=== PATIENT | female | born 2000 | race Caucasian/White ===

== ENCOUNTER 2024-11-29 15:38 | Emergency (ER) | payer BC, SELFPAY ==
--- NOTE | ~2024-11-29 | XR_ITS ---
EXAMINATION: XR KNEE, RIGHT CLINICAL INFORMATION: fall, pain COMPARISON: None available. TECHNIQUE: Four views of the right knee. FINDINGS: No definitive fracture or joint effusion. Alignment is anatomic. Joint spaces are maintained. No abnormal soft tissue calcification. XR/XR knee RT 4V IMPRESSION: No acute findings right knee. No joint effusion. Electronically signed by: Beau Mata MD 11/29/2024 04:31 PM EST
--- NOTE | ~2024-11-29 | XR_ITS ---
EXAMINATION: XR ANKLE, RIGHT CLINICAL INFORMATION: fall, pain COMPARISON: None available. TECHNIQUE: AP, lateral, and mortise views of the right ankle. FINDINGS: No fracture, dislocation, or suspicious bone lesion. The mortise is intact. The talar dome is normal. No syndesmotic widening. There is a small plantar calcaneal spur. The subtalar joints appear normal. No evidence of ankle joint effusion. Normal-appearing soft tissues. XR/XR ankle RT min 3V IMPRESSION: No acute findings right ankle. Electronically signed by: Beau Mata MD 11/29/2024 04:33 PM EST
[2024-11-29 15:46] VITALS: BP 169/134; PULSE 77; O2SAT 99
[2024-11-29 16:29] VITALS: BP 147/101; PULSE 75; RESP 16; TEMP 36.9; O2SAT 98; BMI 58.6
[2024-11-29 19:11] VITALS: BP 140/72; PULSE 83; RESP 16; O2SAT 97
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
[2024-11-29] MEDS: Ibuprofen 600 MG TABLET PO (19:18)
--- OUTSIDE RECORDS SUMMARY | 2024-11-29 19:34 | XMS_ITS | Encounter Summary ---
Author Organization [facility] Address [address] [place] [address] Care Team Providers Care Assistant Drafter Name Role Phone Kevin Silva MD Primary Care Provider Kevin Silva MD Primary Care Provider [phone] Radha Minaya Primary Care Provider [phone] Mala Murguia MD Primary Care Provider Encounter Details Date Type Department Care Team (Late st Contact Info) Description 05/14/2011 Orders Only [facility] [address] [place] [id number] Kevin Silva MD [address] [place] [address] Social History Tobacco Use Types Packs/Day Years Used Date Smoking Tobacco: Never Assessed Comments Unknown Sex and Gender Information Value Date Recorded Sex Assigned at Not on file Legal Sex Female 12:23 PM EDT Gender Identity Not on file Sexual Orientation Not on file documented as of this encounter Plan of Treatment Not on file documented as of this encounter Procedures * Due to [place] state law, this organization might not be sharing negative HIV tests. Procedure Name Priority Date/Time Associated Diagnosis Comments URINALYSIS, DIP ONLY ( SITE STAT ONLY) STAT (All results called to provider) 05/14/2011 12:59 PM EDT Dysuria CULTURE, URINE Routine 05/14/2011 Dysuria URINALYSIS, COMPLETE (DIP & MICRO) Routine 05/14/2011 Dysuria documented in this encounter Results * Due to [place] state law, this organization might not be sharing negative HIV tests. * URINALYSIS, DIP ONLY ( SITE STAT ONLY) (05/14/2011 12:59 PM EDT) COLOR (URINE) yellow [facility] (CLIA# [id number]) APPEARANCE (URINE) clear [facility] (CLIA# [id number]) SPECIFIC GRAVITY 1.025 1.001 - 1.035 [facility] (CLIA# [id number]) PH (URINE) 6.0 5.0 - 8.0 [facility] (CLIA# [id number]) PROTEIN (URINE) neg Neg - Neg [facility] (CLIA# [id number]) GLUCOSE (URINE) neg Neg - Neg [facility] (CLIA# [id number]) Ketones (Urine) neg Neg - Neg [facility] (CLIA# [id number]) BILIRUBIN (URINE) neg Neg - Neg [facility] (CLIA# [id number]) BLOOD (URINE) neg Neg - Neg [facility] (CLIA# [id number]) WBC (URINE) neg Neg - Neg [facility] (CLIA# [id number]) NITRITE (URINE) neg Neg - Neg [facility] (CLIA# [id number]) Urine specimen (specimen) 05/14/2011 12:59 PM EDT Narrative [facility] (CLIA# [id number]) - 05/14/2011 1:00 PM EDT Micro and culture already ordered per provider. us Kevin Silva MD LAB SAME DAY RESULT Final Resu lt [facility] (CLIA# [id number]) [address] [place] [address] * (ABNORMAL) URINALYSIS, COMPLETE (DIP & MICRO) (05/14/2011) COLOR (URINE) YELLOW YELLOW [facility] APPEARANCE (URINE) TURBID(A) CLEAR [facility] SPECIFIC GRAVITY 1.024 1.001 - 1.035 [facility] PH (URINE) 5.5 5.0 - 8.0 [facility] PROTEIN (URINE) NEG NEG [facility] GLUCOSE (URINE) NEG NEG [facility] Ketones (Urine) NEG NEG [facility] BILIRUBIN (URINE) NEG NEG [facility] BLOOD (URINE) NEG NEG [facility] WBC (URINE) NEG NEG [facility] NITRITE (URINE) NEG NEG [facility] WBC (URINE) 0 0-4/HPF [facility] RBC (Urine Sed) 0 0-3/HPF [facility] EPITHELIAL CELLS.SQUAMOUS (URINE SED) 0-5 0-5/HPF [facility] EPITHELIAL CELLS.TRANSITI ONAL (URINE SED) 0 0-5/HPF [facility] EPITHELIAL CELLS.RENAL (URINE SED) 0 0-3/HPF [facility] BACTERIA (URINE) MODERATE(A) NONE SEEN [facility] URINE URIC ACID CRYSTALS MODERATE NONE-FEW/H PF [facility] URINE CRYSTALS MANY AMORPHOUS [facility] 05/14/2011 05/14/2011 9:4 5 PM EDT Narrative [facility] - 05/15/2011 7:08 AM EDT Report Comments: URINE CULTURE PERFORMED FROM UNPRESERVED URINE. RESULTS MAY BE AFFECTED. PLEASE SEND URINE IN MARTÍNEZ TOP URINE CULTURE TUBE FOR OPTIMAL RESULTS. us Kevin Silva MD LAB SAME DAY RESULT Final Resu lt Performing Organization Address City/State/[facility] Co de Phone Number [facility] [address] [place] [address] * CULTURE, URINE (05/14/2011) URINE CULTURE CLEAN VOID SEE TEXT [facility] Comment: SOURCE: URINE MULTIPLE ORGANISMS, EACH <10,000 CFU/ML. MAY REPRESENT NORMAL GARO CONTAMINATION FROM EXTERNAL GENITALIA. NO FURTHER TESTING. 05/14/2011 05/14/2011 9:4 5 PM EDT Narrative [facility] - 05/16/2011 8:08 AM EDT Report Comments: URINE CULTURE PERFORMED FROM UNPRESERVED URINE. RESULTS MAY BE AFFECTED. PLEASE SEND URINE IN MARTÍNEZ TOP URINE CULTURE TUBE FOR OPTIMAL RESULTS. Kevin Silva MD LABORATORY Final Result [facility] [address] [place] [address] documented in this encounter Visit Diagnoses Diagnosis Dysuria documented in this encounter Additional Health Concerns Infection Onset Date Last Indicated Resolved Time COVID-19 Rule-Out 05/20/2021 05/20/2021 05/20/2021 4:22 PM EDT documented as of this encounter Care Teams Assistant Drafter Relationship Specialty Start Date End Date Kevin Silva MD [address] [place] [address] PCP - General 01/19/06 11/06/13 Kevin Silva MD [address] [place] [address] PCP - General Pediatrics 11/07/13 05/13/16 Radha Minaya [address] [address] PCP - General Pediatrics 05/14/16 10/11/21 Mala Murguia MD [address] [place] [address] PCP - General Internal Medicine 10/12/21 documented as of this encounter
--- OUTSIDE RECORDS SUMMARY | 2024-11-29 19:34 | XMS_ITS | Encounter Summary ---
Author Organization [facility] Address [address] [place] [address] Care Team Providers Care Burglary Investigator Name Role Phone Mala Murguia MD Primary Care Provider [phone] Encounter Details Date Type Department Care Team ([facility] st Contact Info) Description 05/21/2022 Orders Only [facility] Orthopedic Surgery [address] [facility] [address] [place] [address] Rafael Jimenez PA [address] [facility] [address] [place] [address] Social History Tobacco Use Types Packs/Day Years Used Date Smoking Tobacco: Never Cigarettes Smokeless Tobacco: Never Alcohol Use Standard Drinks/Week Comments Not Asked 0 (1 standard drink = 0.6 oz pur e alcohol) Comments No Sex and Gender Information Value Date Recorded Sex Assigned at Not on file Legal Sex Female 12:23 PM EDT Gender Identity Not on file Sexual Orientation Not on file documented as of this encounter Plan of Treatment Not on file documented as of this encounter Results * Due to [place] state law, this organization might not be sharing negative HIV tests. * XR KNEE ORTHO - RT (DX: KNEE PAIN *NO INJURY* M25.561/ 719.46)(AGE>=35, CAN WEIGHT-BEAR) FC (05/22/2022 4:16 PM EDT) Anatomical Region Laterality Modality LOWER EXTREMITY Radiographic Carolyn ging 05/25/2022 1:54 PM EDT Narrative 05/25/2022 3:06 PM EDT CONTRAST: AP standing view of the bilateral knees. ??Lateral standing and sunrise views of the right knee Comparison: None Findings: Bones intact. No dislocations. ??Small bone island incidentally noted within the proximal tibia. No significant arthritic change or erosions. No joint effusion. No radiopaque foreign body. IMPRESSION: 1. No acute findings. ADDENDUM: Agree with preliminary report. Procedure Note Paco Singleton MD - 05/25/2022 CONTRAST: AP standing view of the bilateral knees. Lateral standing and sunriseviews of the right knee Comparison: None Findings: Bones intact. No dislocations. Small bone island incidentally notedwithin the proximal tibia. No significant arthritic change or erosions. No joint effusion. No radiopaque foreign body. IMPRESSION: 1. No acute findings. ADDENDUM: Agree with preliminary report. Rafael CHOWDHURY IMG XRAY NO CONTRAST ORDERABL ES Final Result documented in this encounter Visit Diagnoses Diagnosis Right knee pain, unspecified chronicity Right knee pain, unspecified chronicity documented in this encounter Care Teams Burglary Investigator Relationship Specialty Start Date End Date Mala Murguia MD [address] [place] [address] PCP - General Internal Medicine 10/12/21 documented as of this encounter
--- OUTSIDE RECORDS SUMMARY | 2024-11-29 19:34 | XMS_ITS | Encounter Summary ---
Author Organization [facility] Address [address] [place] [address] Care Team Providers Care Book Coverer Name Role Phone Kevin Silva MD Primary Care Provider [phone] Kevin Silva MD Primary Care Provider [phone] Radha Minaya Primary Care Provider [phone] Mala Murguia MD Primary Care Provider [phone] Encounter Details Date Type Department Care Team (Late st Contact Info) Description 06/17/2010 Orders Only [facility] [address] [place] [phone] Kevin Silva MD [address] [place] [address] Social History Tobacco Use Types Packs/Day Years Used Date Smoking Tobacco: Never Assessed Comments Unknown Sex and Gender Information Value Date Recorded Sex Assigned at Not on file Legal Sex Female 12:23 PM EDT Gender Identity Not on file Sexual Orientation Not on file documented as of this encounter Progress Notes * Lynda Leary LVN LPN - 06/18/2010 10:52 AM EDTQuick Note: Lyme prelim 3 day turnaround logged in this am documented in this encounter Plan of Treatment Not on file documented as of this encounter Procedures * Due to [place] law, this organization might not be sharing negative HIV tests. Procedure Name Priority Date/Time Associated Diagnosis Comments LYME DISEASE PANEL W/WB REFLEX Routine 06/17/2010 Left knee pain LYME WESTERN BLOT, IGG & IGM PANEL Routine 06/17/2010 SED RATE ESR Routine 06/17/2010 Left knee pain CBC 5 PART DIFF Routine 06/17/2010 Left knee pain documented in this encounter Results * Due to [place] law, this organization might not be sharing negative HIV tests. * (ABNORMAL) LYME WESTERN BLOT, IGG & IGM PANEL (06/17/2010) LYME (B. BURGDORFERI) 18KD IGG POSITIVE [facility] LYME (B. BURGDORFERI) 23KD IGG POSITIVE [facility] LYME (B. BURGDORFERI) 28KD IGG POSITIVE [facility] LYME (B. BURGDORFERI) 30KD IGG POSITIVE [facility] LYME (B. BURGDORFERI) 39KD IGG POSITIVE [facility] LYME (B. BURGDORFERI) 41KD IGG POSITIVE [facility] LYME (B. BURGDORFERI) 45KD IGG NEGATIVE [facility] LYME (B. BURGDORFERI) 58KD IGG POSITIVE [facility] LYME (B. BURGDORFERI) 66KD IGG POSITIVE [facility] LYME (B. BURGDORFERI) 93KD IGG POSITIVE [facility] LYME (B. BURGDORFERI) IGG INTERPRETATION SEE TEXT(A) NEGATIVE [facility] Comment: POSITIVE. IGG ANTIBODIES TO SIGNIFICANT B. BURGDORFERI PROTEINS DETECTED. PRESUMPTIVE EVIDENCE OF PROBABLE EXPOSURE. P23 IGM AB POSITIVE [facility] P39 IGM AB POSITIVE [facility] P41 IGM AB POSITIVE [facility] LYME (B. BURGDORFERI) IGM INTERPRETATION SEE TEXT(A) NEGATIVE [facility] Comment: POSITIVE. IGM ANTIBODIES TO SIGNIFICANT B. BURGDORFERI PROTEINS DETECTED. PRESUMPTIVE EVIDENCE OF PROBABLE EXPOSURE. 06/17/2010 06/17/2010 6:2 0 PM EDT Kevin Silva MD LABORATORY Final Result [facility] [address] [place] [address] * (ABNORMAL) LYME DISEASE PANEL W/WB REFLEX (06/17/2010) Pathologist [facility] LYME (B. BURGDORFERI) AB SCREEN 7.5(A) [facility] Comment: < OR = 0.90 ?? NEGATIVE 0.91 - 1.09 ?? EQUIVOCAL > OR = 1.10 ?? POSTIVE LYME EIA SCREEN IS REFLEXED TO WESTERN BLOT IF POSITIVE. 06/17/2010 06/17/2010 6:2 0 PM EDT Kevin Silva MD LABORATORY Final Result Performing Organization Address [facility] Co de Phone Number [facility] [address] [place] [address] * (ABNORMAL) SED RATE ESR (06/17/2010) [facility] ESR (ERYTHROCYTE SEDIMENTATION RATE) 44(H) 0 - 20 MM/HR [facility] 06/17/2010 06/17/2010 6:2 0 PM EDT Kevin Silva MD LAB SAME DAY RESULT Final Resu lt Performing Organization Address [facility] de Phone Number [facility] [address] [place] [address] * (ABNORMAL) CBC 5 PART DIFF (06/17/2010) Pathologist [facility] WHITE BLOOD COUNT 7.8 4.5 - 13.5 THOUS/UL [facility] RBC 4.97 4.00 - 5.20 MIL/UL [facility] Hemoglobin 13.1 11.5 - 15.5 G/DL [facility] HCT (HEMATOCRIT) 39.2 35.0 - 45.0 % [facility] MCV 78.9 77.0 - 95.0 FL [facility] MCH 26.3 25.0 - 33.0 PG [facility] MCHC 33.3 31.0 - 36.0 G/DL [facility] BAND % 0 0 - 5 % [facility] NEUTROPHIL % 64 40 - 65 % [facility] LYMPHOCYTE % 28(L) 30 - 50 % [facility] MONOCYTE % 6 0 - 14 % [facility] EOSINOPHIL % 1 0 - 5 % [facility] BASOPHIL % 1 0 - 3 % [facility] ATYPICAL LYMPHOCYTE % 0 0 - 5 % [facility] PLATELETS 255 140 - 400 THOUS/UL [facility] BANDS # 0 0 - 750 CELLS/MCL [facility] NEUTROPHILS # 4992 1500 - 8000 CELLS/MCL [facility] LYMPHOCYTES # 2184 1500 - 6500 CELLS/MCL [facility] MONOCYTES # 468 200 - 900 CELLS/MCL [facility] EOSINOPHILS # 78 15 - 550 CELLS/MCL [facility] BASOPHILS # 78 0 - 200 CELLS/MCL [facility] ATYPICAL LYMPHOCYTES # 0 0 - 200 CELLS/MCL [facility] RDW 12.9 11.0 - 15.0 % [facility] MPV 9.3 7.5 - 11.5 FL [facility] 06/17/2010 06/17/2010 6:2 0 PM EDT us Kevin Silva MD LAB SAME DAY RESULT Final Resu lt [facility] [address] [place] [address] documented in this encounter Visit Diagnoses Diagnosis Left knee pain Pain in joint, lower leg documented in this encounter Additional Health Concerns Infection Onset Date Last Indicated Resolved Time COVID-19 Rule-Out 05/20/2021 05/20/2021 05/20/2021 4:22 PM EDT documented as of this encounter Care Teams Book Coverer Relationship Specialty Start Date End Date Kevin Silva MD [address] [place] [address] PCP - General 01/19/06 11/06/13 Kevin Silva MD [address] [place] [address] PCP - General Pediatrics 11/07/13 05/13/16 Radha Minaya [address] [address] PCP - General Pediatrics 05/14/16 10/11/21 Mala Murguia MD [address] [place] [address] PCP - General Internal Medicine 10/12/21 documented as of this encounter
--- OUTSIDE RECORDS SUMMARY | 2024-11-29 19:34 | XMS_ITS | Encounter Summary ---
Author Organization [facility] Address [address] [place] [address] Care Team Providers Care Recreation Therapy Aide Name Role Phone Mala Murguia MD Primary Care Provider Encounter Details Date Type Department Care Team (Late st Contact Info) Description 12/24/2022 [facility] Orthopedic Surgery [address] [facility] [address] [place] [address] Debbie Blevins, LUCIANA [address] [facility] [address] [place] [address] Social History Tobacco Use Types Packs/Day Years [...] on file documented as of this encounter Visit Diagnoses Not on filedocumented in this encounter Care Teams Recreation Therapy Aide Relationship Specialty Start Date End Date Mala Murguia MD [address] [place] [address] PCP - General Internal Medicine 10/12/21 documented as of this encounter
--- OUTSIDE RECORDS SUMMARY | 2024-11-29 19:34 | XMS_ITS | Encounter Summary ---
Author Organization [facility] Address [address] [place] [address] Care Team Providers Care Supervisor Coin Machine Name Role Phone Kevin Silva MD Primary Care Provider [phone] Kevin Silva MD Primary Care Provider [phone] Radha Minaya Primary Care Provider [phone] Mala Murguia MD Primary Care Provider Encounter Details Date Type Department Care Team (Late st Contact Info) Description 09/24/2011 Orders Only [facility] [address] [place] [phone] Kevin Silva MD [address] [place] [address] Social History Tobacco Use Types Packs/Day Years [...] of this encounter Procedures * Due to [place] state law, this organization might not be sharing negative HIV tests. Procedure Name Priority Date/Time Associated Diagnosis Comments URINALYSIS, DIP ONLY STAT (All results called to provider) 09/24/2011 10:30 AM EST Painful urination CULTURE, URINE, ROUTINE Routine 09/24/2011 9:41 AM EST Painful urination URINALYSIS, MICROSCOPIC Routine 09/24/2011 9:41 AM EST Painful urination documented in this encounter Results * Due to [place] state law, this organization might not be sharing negative HIV tests. * URINALYSIS, DIP ONLY ( SITE STAT ONLY) (09/24/2011 10:30 AM EST) COLOR (URINE) Yellow [facility] (CLIA# [id number]) APPEARANCE (URINE) Clear [facility] (CLIA# [id number]) SPECIFIC GRAVITY 1.025 1.001 - 1.035 [facility] (CLIA# [id number]) PH (URINE) 6.0 5.0 - 8.0 [facility] (CLIA# [id number]) PROTEIN (URINE) Negative Neg [facility] (CLIA# [id number]) GLUCOSE (URINE) Negative Neg [facility] (CLIA# [id number]) Ketones (Urine) Negative Neg [facility] (CLIA# [id number]) BILIRUBIN (URINE) Negative Neg [facility] (CLIA# [id number]) BLOOD (URINE) Negative Neg [facility] (CLIA# [id number]) WBC (URINE) Negative Neg [facility] (CLIA# [id number]) NITRITE (URINE) Negative Neg [facility] (CLIA# [id number]) Urine specimen (specimen) 09/24/2011 10:30 AM EST Narrative [facility] (CLIA# [id number]) - 09/24/2011 12:46 PM EST Micro and culture already ordered per provider. us Kevin Silva MD LAB SAME DAY RESULT Final Resu lt [facility] (CLIA# [id number]) [address] [place] [address] * (ABNORMAL) URINALYSIS, MICROSCOPIC (09/24/2011 9:41 AM EST) WBC (Urine) 6-10(A) < OR = 5 /HPF [facility] Comment:{WBC {[id number]) RBC (Urine Sed) 0-3 < OR = 3 /HPF [facility] Comment:{RBC {[id number]) Epithelial cells.squamous (Urine sed) 6-10(A) < OR = 5 /HPF [facility] Comment:{SQUAMOUS EPITHELIAL CELLS {[id number]) Bacteria (Urine) FEW(A) NONE SEEN /HPF [facility] Comment:{BACTERIA {[id number]) Calcium oxalate crystals (Urine sed) FEW NONE OR FEW /HPF [facility] Comment:{CALCIUM OXALATE CRY STALS {[id number]) Urate crystals (Urine sed) FEW NONE OR FEW /HPF [facility] Comment:{URIC ACID CRYSTALS {[id number]) Amorphous sediment (Urine sed) MODERATE( A) NONE OR FEW /HPF [facility] Comment:{AMORPHOUS SEDIMENT {[id number]) Hyaline casts (Urine sed) NONE SEEN NONE SEEN /LPF [facility] Comment:{HYALINE CAST {[id number]) Service comment 01 SEE NOTE [facility] Comment: {NOTE {[id number]) This urine was analyzed for the presence of WBC, RBC, bacteria, casts, and other formed elements. Only those elements seen were reported. 09/24/2011 9:41 AM EST 09/24/2011 3:43 PM EST Narrative Resulting Agency Comment [id number] us Kevin Silva MD LAB SAME DAY RESULT Final Resu lt [facility] [address] [place] [address] * CULTURE, URINE, ROUTINE (09/24/2011 9:41 AM EST) Bacteria culture (Urine) SEE NOTE [facility] Comment: {CULTURE, URINE, ROUTINE {[id number]) ??CULTURE, URINE, ROUTINE ??MICRO NUMBER: ?[id number] ??TEST STATUS: ? FINAL ??SPECIMEN SOURCE: ?? URINE ??SPECIMEN QUALITY: ??ADEQUATE ??RESULT: ?Single organism less than 10,000 CFU/mL isolated. ? These organisms, commonly found on external and ? internal genitalia, are considered colonizers. ? No further testing performed. 09/24/2011 9:41 AM EST 09/24/2011 3:43 PM EST Narrative Resulting Agency Comment [id number] Kevin Silva MD LABORATORY Final Result [facility] [address] [place] [address] documented in this encounter Visit Diagnoses Diagnosis Painful urination Dysuria documented in this encounter Additional Health Concerns Infection Onset Date Last Indicated Resolved Time COVID-19 Rule-Out 05/20/2021 05/20/2021 05/20/2021 4:22 PM EDT documented as of this encounter Care Teams Supervisor Coin Machine Relationship Specialty Start Date End Date Kevin Silva MD [address] [place] [address] PCP - General 01/19/06 11/06/13 Kevin Silva MD [address] [place] [address] PCP - General Pediatrics 11/07/13 05/13/16 Radha Minaya [address] [address] PCP - General Pediatrics 05/14/16 10/11/21 Mala Murguia MD [address] [place] [address] PCP - General Internal Medicine 10/12/21 documented as of this encounter
--- OUTSIDE RECORDS SUMMARY | 2024-11-29 19:34 | XMS_ITS | Encounter Summary ---
Author Organization [facility] Address [address] [place] [address] Care Team Providers Care Take Down Sorter Name Role Phone Kevin Silva MD Primary Care Provider [phone] Radha Minaya Primary Care Provider [phone] Mala Murguia MD Primary Care Provider [phone] Encounter Details Date Type Department Care Team (Late st Contact Info) Description 04/26/2015 Orders Only [facility] Orthopedic Surgery [address] [place] [address] [address] [place] [phone] Mona Coates PA [address] [address] Social History Tobacco Use Types Packs/Day Years Used Date Smoking Tobacco: Never Alcohol Use Standard Drinks/Week Comments [...] of this encounter Results * Due to [place] state law, this organization might not be sharing negative HIV tests. * XRAY KNEE FOR ORTHO - BILAT FC (04/30/2015 11:57 AM EDT) Anatomical Region Laterality Modality LOWER EXTREMITY Radiographic Carolyn ging 05/01/2015 11:0 7 AM EDT Narrative 05/01/2015 11:07 AM EDT Bilateral standing knees, bilateral laterals, bilateral sunrises. There is moderate medial compartment narrowing bilaterally. There is no fractures or destructive lesion seen. Procedure Note Rafael Johnson MD - 05/01/2015 Bilateral standing knees, bilateral laterals, bilateral sunrises. There is moderate medial compartment narrowing bilaterally. There is no fractures or destructive lesion seen. us Nain Mari MD IMG XRAY NO CONTRAST ORDERABLE S Final Result documented in this encounter Visit Diagnoses Diagnosis Bilateral knee pain- Primary Pain in joint, lower leg Bilateral knee pain Pain in joint, lower leg documented in this encounter Additional Health Concerns Infection Onset Date Last Indicated Resolved Time COVID-19 Rule-Out 05/20/2021 05/20/2021 05/20/2021 4:22 PM EDT documented as of this encounter Care Teams Take Down Sorter Relationship Specialty Start Date End Date Kevin Silva MD PCP - General Pediatrics 11/07/13 05/13/16 Radha Minaya [address] [address] PCP - General Pediatrics 05/14/16 10/11/21 Mala Murguia MD [address] [place] [address] PCP - General Internal Medicine 10/12/21 documented as of this encounter
--- OUTSIDE RECORDS SUMMARY | 2024-11-29 19:34 | XMS_ITS | Encounter Summary ---
Author Organization [facility] Address [address] [place] [address] Care Team Providers Care Pocket Setter Lockstitch Name Role Phone Kevin Silva MD Primary Care Provider Kevin Silva MD Primary Care Provider Radha Minaya Primary Care Provider [phone] Mala Murguia MD Primary Care Provider [phone] Encounter Details Date Type Department Care Team (Late st Contact Info) Description 10/29/2007 Orders Only [facility] [address] [place] [phone] Kevin Silva MD [address] [place] [address] Social History Tobacco Use Types Packs/Day Years [...] this encounter Procedures * Due to [place] law, this organization might not be sharing negative HIV tests. Procedure Name Priority Date/Time Associated Diagnosis Comments CULTURE, URINE Routine 10/29/2007 ABDOMINAL PAIN documented in this encounter Results * Due to [place] law, this organization might not be sharing negative HIV tests. * CULTURE, URINE (10/29/2007) URINE CULTURE CLEAN VOID SEE TEXT [facility] (CLIA# [id number]) Comment: SOURCE: URINE NO GROWTH 10/29/2007 10/30/2007 12: 48 AM EST Kevin Silva MD LABORATORY Final Result [facility] (CLIA# [id number]) [address] [place] [address] documented in this encounter Visit Diagnoses Diagnosis ABDOMINAL PAIN Abdominal pain, unspecified site documented in this encounter Additional Health Concerns Infection Onset Date Last Indicated Resolved Time COVID-19 Rule-Out 05/20/2021 05/20/2021 05/20/2021 4:22 PM EDT documented as of this encounter Care Teams Pocket Setter Lockstitch Relationship Specialty Start Date End Date Kevin Silva MD [address] [place] [address] PCP - General 01/19/06 11/06/13 Kevin Silva MD [address] [place] [address] PCP - General Pediatrics 11/07/13 05/13/16 Radha Minaya [address] [address] PCP - General Pediatrics 05/14/16 10/11/21 Mala Murguia MD [address] [place] [address] PCP - General Internal Medicine 10/12/21 documented as of this encounter
--- OUTSIDE RECORDS SUMMARY | 2024-11-29 19:34 | XMS_ITS | Encounter Summary ---
Author Organization [facility] Address [address] [place] [address] Care Team Providers Care Construction Accountant Name Role Phone Kevin Silva MD Primary Care Provider Kevin Silva MD Primary Care Provider Radha Minaya Primary Care Provider [phone] Mala Murguia MD Primary Care Provider Encounter Details Date Type Department Care Team (Late st Contact Info) Description 07/31/2011 Orders Only [facility] [address] [place] [phone] Kevin Silva MD [address] [place] [address] Social History Tobacco Use Types Packs/Day Years [...] of this encounter Procedures * Due to [place] state law, this organization might not be sharing negative HIV tests. Procedure Name Priority Date/Time Associated Diagnosis Comments ERYTHROCYTE SEDIMENTATION RATE (ESR) Routine 07/31/2011 10:25 AM EDT Pain in joint involving lower leg CBC INCLUDES DIFFERENTIAL AND PLATELET COUNT Routine 07/31/2011 10:25 AM EDT Pain in joint involving lower leg documented in this encounter Results * Due to [place] state law, this organization might not be sharing negative HIV tests. * ERYTHROCYTE SEDIMENTATION RATE (ESR), MICHELLE (07/31/2011 10:25 AM EDT) Sedimentation Rate [place] (ESR) 4 < OR = 20 mm/h [facility] Comment:{SED RATE BY GORGE MARTINEZ {[id number]) 07/31/2011 10:2 5 AM EDT 07/31/2011 6:38 PM EDT Narrative Resulting Agency Comment [id number] us Kevin Silva MD LAB SAME DAY RESULT Final Resu lt [facility] [address] [place] [address] * (ABNORMAL) CBC INCLUDES DIFFERENTIAL AND PLATELET COUNT (07/31/2011 10:25 AM EDT) WBC 5.1 4.5 - 13.5 Thousand/ uL [facility] Comment:{WHITE BLOOD CELL CO UNT {[id number]) RBC 5.30(H) 4.00 - 5.20 Million/u L [facility] Comment:{RED BLOOD CELL COUN T {[id number]) Hemoglobin 14.5 11.5 - 15.5 g/dL [facility] Comment:{HEMOGLOBIN {[id number]) Hematocrit 42.1 35.0 - 45.0 % [facility] Comment:{HEMATOCRIT {[id number]) MCV 79.4 77.0 - 95.0 fL [facility] Comment:{MCV {[id number]) MCH 27.5 25.0 - 33.0 pg [facility] Comment:{MCH {[id number]) MCHC 34.6 31.0 - 36.0 g/dL [facility] Comment:{MCHC {[id number]) RDW 13.1 11.0 - 15.0 % [facility] Comment:{RDW {[id number]) PLT 206 140 - 400 Thousand/ uL [facility] Comment:{PLATELET COUNT {[id number]) MPV 10.3 7.5 - 11.5 fL [facility] Comment:{MPV {[id number]) Neutrophils # 2917 1500 - 8000 cells/uL [facility] Comment:{ABSOLUTE NEUTROPHIL S {[id number]) Lymphocytes # 1754 1500 - 6500 cells/uL [facility] Comment:{ABSOLUTE LYMPHOCYTE S {[id number]) Monocytes # 372 200 - 900 cells/uL [facility] Comment:{ABSOLUTE MONOCYTES {[id number]) Eosinophils # 36 15 - 500 cells/uL [facility] Comment:{ABSOLUTE EOSINOPHIL S {[id number]) Basophils # 20 0 - 200 cells/uL [facility] Comment:{ABSOLUTE BASOPHILS {[id number]) Neutrophils % 57.2 % [facility] Comment:{NEUTROPHILS {[id number]) Lymphocytes % 34.4 % [facility] Comment:{LYMPHOCYTES {[id number]) Monocytes % 7.3 % [facility] Comment:{MONOCYTES {[id number]) Eosinophils % 0.7 % [facility] Comment:{EOSINOPHILS {[id number]) Basophils % 0.4 % [facility] Comment:{BASOPHILS {[id number]) 07/31/2011 10:2 5 AM EDT 07/31/2011 6:38 PM EDT Narrative Resulting Agency Comment [id number] us Kevin Silva MD LAB SAME DAY RESULT Final Resu lt [facility] [address] [place] [address] documented in this encounter Visit Diagnoses Diagnosis Pain in joint involving lower leg Pain in joint, lower leg documented in this encounter Additional Health Concerns Infection Onset Date Last Indicated Resolved Time COVID-19 Rule-Out 05/20/2021 05/20/2021 05/20/2021 4:22 PM EDT documented as of this encounter Care Teams Construction Accountant Relationship Specialty Start Date End Date Kevin Silva MD [address] [place] [address] PCP - General 01/19/06 11/06/13 Kevin Silva MD [address] [place] [address] PCP - General Pediatrics 11/07/13 05/13/16 Radha Minaya [address] [address] PCP - General Pediatrics 05/14/16 10/11/21 Mala Murguia MD [address] [place] [address] PCP - General Internal Medicine 10/12/21 documented as of this encounter
--- OUTSIDE RECORDS SUMMARY | 2024-11-29 19:35 | XMS_ITS | Encounter Summary ---
Author Organization [facility] Address [address] [place] [address] Care Team Providers Care Molder Punch Name Role Phone Mala Murguia MD Primary Care Provider [phone] Reason for Visit * Reason Comments OT Treatment * Insurance Referral (Routine) - Authorized Specialty Diagnoses / Procedures Referred By Evens t Referred To Contact Occupational Therapy Diagnoses [facility] Qu[facility]ain's [facility]osynovitis [facility] Procedures FOLLOW UP Mala Murguia MD [address] [place] [id number] Phone: tel: fax: Mane Marvin OT [facility] [place] Phone: tel: Referral ID Status Reason Start Date Expiration Date V isits Requested Visits Authorized [id number] Authorized 10/27/2024 10/25/2025 26 26 Encounter Details Date Type Department Care Team (Late st Contact Info) Description 11/09/2024 9:15 AM EST Evaluation [facility] [address] [place] [address] Mane Marvin OT [facility] [place] De Quervain's tenosynovitis, right (Primary Dx); Carpal tunnel syndrome of right wrist; Deficit in activities of daily living (ADL) Social History Tobacco Use Types Packs/Day Years Used Date Smoking Tobacco: Never Smokeless Tobacco: Never Comments:: Alcohol Use Standard Drinks/Week Comments Never 0 (1 standard drink = 0.6 oz pur e alcohol) [facility] Utilities Answer Date Recorded In the past 12 months has th e electric, gas, oil, or water company threatened to shut off services in your home? No 09/06/2024 Hunger Vital Sign Answer Date Recorded Within the past 12 months, y ou worried that your food would run out before you got the money to buy more. Never true 09/06/20 24 Within the past 12 months, t he food you bought just didn't last and you didn't have money to get more. Never true 09/06/2024 Transportation Answer Date Recorded In the past 12 months, has l ack of reliable transportation kept you from medical appointments, meetings, work or from getting things needed for daily living? No 09/06/2024 Housing Answer Date Recorded Housing Risk Low 2 09/06/2024 Housing Risk Medium Not on file 09/06/2024 Housing Risk High Not on file 09/06/2024 What is your living situation today? [facility] 09/06/2024 Comments No Sex and Gender Information Value Date Recorded Sex Assigned at Female 01/30/2022 4:18 PM EDT Legal Sex Female 9:37 AM EDT Gender Identity Female 01/30/2022 4:18 PM EDT Sexual Orientation Other 04/07/2022 3: 54 PM EDT Sexual Orientation Straight 04/07/2022 3: 54 PM EDT documented as of this encounter Progress Notes * Mane Marvin, OT - 11/09/2024 3:22 PM EST Hand Therapy Discharge Patient Name: Mala Birmingham Date of : 2000 Date of Encounter: 11/09/2024 Referring Provider: Conner Linton MD Diagnosis: (M65.4) De Quervain's tenosynovitis, right (primary encounter diagnosis) (G56.01) Carpal tunnel syndrome of right wrist (Z78.9) Deficit in activities of daily living (ADL) General Information OT Date of Re-Evaluation: 11/09/24 History of Present Illness: Pt arrives for reassessment. 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 She has beenseen 2xwith 1 cancel. Her PRHWE score improved from 53 to 24.5. Her pain is well managed at 0-2 but increasesto 4 with certian activity. She is able to return demo previously provided nerve and tendon glides as well as other written exercises provided for CTS. She is able to return demo the scapula stabilization with T-band exercise provided today. She was ed in symptom management through modifications toher current home and work activities including use of OTC brace, modifying her desk and chair at home and work to be more ergonomically correct, use of modified tools including wrist pad for typing, Penagain or modified pen OT Plan of Care Requires OT Follow UP: No Progress: Progressing toward goals, Discontinue therapy Overall Asessment Preferred Learning Style: Verbal, Written, Demonstration Reassessment/Discharge Date: 11/09/24 Problem List/Functional Deficits/Impairments: Pain Clinical Presentation: Symptoms consistent with diagnosis Criteria for Skilled Therapeutic Interventions Met: no Goal Setting Participants: Patient Patient/Family Goals Statement: goal met ROM Hand Strength - [employer] (lbs) Right Handle Setting 2: 55 lbs Hand Strength - Pinch (lbs) Right Hand-Lateral: 16 lbs Right Hand-Three Jaw Chad: 12 lbs OT Profile and ADL/IADL Assessment Prior level of functioning with ADLs/IADLs: Independent Important Activities: hobbies, spiritual connection, work/vocation, family engagement, social activities Important Activities: writing, drawing, reading, driving, video games Occupation Status: Full Duty Occupation: Journalism Grooming/hygiene: no difficulty/independent Dressing/Fasteners/buttons: no difficulty/independent Feeding/Using utensils: no difficulty/independent Writing: moderate difficulty Electronic Device Use: moderate difficulty Household duties: minimum difficulty Meal preparation: minimum difficulty acute care occupational therapist activities: n/a Driving: moderate difficulty Sleep: no difficulty Other: does not interfere with sleep Orthotics/Prosthetics Orthotics: (Not wearing orthotic as it is too heavy and causing more pain ) General Sensory Assessment (Hand) Sensory General Assessment: pins & needles (index and thumb tips tingling with use of hand) Standard Tests: Pain Total: 16 50 Function Total: 8.5 50 Patient rated wrist/hand evaluation total: 24.5 /100 Standardized Tests Additional Standardized Tests : PRWHE Coping Observed Emotional State: calm, cooperative Verbalized Emotional State: acceptance Plan of Care Review Plan of Care Reviewed With: patient Plan Patient/Family Goals Statement: goal met Criteria for Skilled Therapeutic Interventions Met: no Treatment Subjective: Its better but not gone. It hard to describe Therapeutic Exercise - ROM Therapeutic Exercise - ROM: Other (see comments) Other - ROM Exercise: Therapist reviewed HEP for AROM nerve and tendon glides as well as stretches and postural exercises provided prevoiusly, completed reassessment Therapeutic Exercise - Strength Therapeutic Exercise - Strength: Other Other -Strength Exercise: Therapist provided a HEP for scapula stabilization exercises for posture,provided with red band ADLs Activities of daily living: Joint protection, Task modification, Instruction in adaptive equipment Joint protection: Therapist taught joint protection techniques with all daily activity in order to minimize pain and decrease stress to the carpal tunnel. Handout provided Task modification: Therapist provided education regarding activity modifications in order to decrease stress to the area of the carpal tunnel. Handout provided. Instruction in adaptive equipment: Therapist provided instruction regarding adaptive equipment. Ed in different types of equipment as it pertains to her daily tasks including large handled utensils, large pens, dressing tools and openers for containers. Therapist also ed patient in ergonomics pertaining to her home and work spaces making suggestions for seating, computer, wrist pads, orthotics, and writing utensils. Provided with written handouts and recommendations Patient/Caregiver Education Patient/Caregiver Education : Pt ed in activity modifications, joint protection and adaptive equipment, HEP for ROM and strength Skilled therapy performed through: Education with model, Education with exercises, Verbal/demonstrated/written home program instructions Level of Understanding: Asking questions, good recall Assessment/Plan Assessment: See assessment in plan of care Plan: Discontinue HT Short Term Goals Prior Goals: Achieved Short Term Goal Timeframe: See goal staus in plan of care Strength Goals: (goal met) Function Goals: (goal met) Pain Goals: (goal met) Dec knowledge of dx Goals: goal met assisted goal(s) assisted goal(s) timeframe: goal met Discharge Summary Reason for Discharge: patient met all goals and outcomes, independent with HEP and symptom management Total Treatment Time Start Time: 914 Stop Time: 1000 Time Calculation (min): 45 min ADLs/IADLs(Document Time Spent in Minutes) OT Self Care ( Do not Bill With Theract): 25 Therapeutic Interventions(Document Time Spent in Minutes) OT Therapeutic Exercise: 15 Mane Marvin OT OT, [place]: [id number] documented in this encounter Plan of Treatment Upcoming Encounters Date Type Department Care Team (Late st Contact Info) Description 12/29/2024 9:30 AM EST Procedure visit [facility] [address] [place] [phone] 12/29/2024 10:15 AM EST Follow-Up [facility] [address] [address] Conner Linton MD [address] [place] [phone] 01/18/2025 9:20 AM EDT Follow-Up [facility] Internal Medicine [address] [place] [phone] Mala Murguia MD [address] [place] [phone] 11/21/2025 10:00 AM EST Office Visit [facility] Internal Medicine [address] [place] [address] [phone] Mala Murguia MD [address] [place] [phone] documented as of this encounter Visit Diagnoses Diagnosis De Quervain's tenosynovitis, right- Primary Carpal tunnel syndrome of right wrist Deficit in activities of daily living (ADL) documented in this encounter Care Teams Molder Punch Relationship Specialty Start Date End Date Mala Murguia MD [address] [place] [phone] PCP - General Internal Medicine 09/17/21 documented as of this encounter
--- OUTSIDE RECORDS SUMMARY | 2024-11-29 19:35 | XMS_ITS | Encounter Summary ---
Author Organization [facility] Address [address] [place] [address] Care Team Providers Care Orchardist Name Role Phone Mala Murguia MD Primary Care Provider [phone] Reason for Visit * Reason Comments Insurance Question Tried to call adjust er and the company # lm to verifiy claim Encounter Details Date Type Department Care Team ([facility] st Contact Info) Description 01/12/2023 Telephone Central Registration [address] [place] [phone] Debbie Blevins, PA [address] [facility] [address] [place] [phone] Insurance Question (Tried to call field adjuster and the company # lm to verifiy claim) Social History Tobacco Use Types Packs/Day Years [...] on file documented as of this encounter Miscellaneous Notes * Telephone Encounter - Tanya Conner - 01/12/2023 2:27 PM EDT Tried to call field adjuster and the company # lm to verifiy claim documented in this encounter Plan of Treatment Not on file documented as of this encounter Visit Diagnoses Not on filedocumented in this encounter Care Teams Orchardist Relationship Specialty Start Date End Date Mala Murguia MD [address] [place] [phone] PCP - General Internal Medicine 10/12/21 documented as of this encounter
--- OUTSIDE RECORDS SUMMARY | 2024-11-29 19:35 | XMS_ITS | Continuity of Care Document ---
Author Organization [facility] Address [address] [place] [address] Care Team Providers Care Finishing Operator Name Role Phone Mala Murguia MD Primary Care Provider [phone] Encounters Date Type Department Care Team Description 07/29/2023 Letter/Form RADIOLOGY UNSPECIFIED Provider, Unknown 07/29/2023 Letter/Form RADIOLOGY UNSPECIFIED Provider, Unknown 07/29/2023 8:00 PM EDT Radiology [address] [address] 07/29/2023 4:45 PM EDT Office Visit [address] [address] Analisa Power NP Abdominal pain, unspecified abdominal location (Primary Dx); RLQ abdominal pain; Nausea; Nausea and vomiting, unspecified vomiting type 04/07/2023 2:45 PM EDT Office Visit [facility] [address] [facility] [address] [place] [phone] Debbie Blevins PA Anterior to posterior tear of superior glenoid labrum of left shoulder (Primary Dx); Injury of left shoulder, subsequent encounter 03/10/2023 1:45 PM EDT Office Visit [facility] [address] 123 [facility] [address] [place] [address] Debbie Blevins PA Anterior to posterior tear of superior glenoid labrum of left shoulder (Primary Dx); Injury of left shoulder, subsequent encounter 02/17/2023 3:00 PM EDT Office Visit [facility] [address] [place] [phone] Debbie Blevins PA Anterior to posterior tear of superior glenoid labrum of left shoulder (Primary Dx); Injury of left shoulder, subsequent encounter 02/05/2023 3:00 PM EDT Office Visit [facility] [address] [place] [phone] Debbie Blevins PA Anterior to posterior tear of superior glenoid labrum of left shoulder (Primary Dx); Injury of left shoulder, subsequent encounter 01/22/2023 Minor Procedure/Test [facility] [address] [place] [address] Mala Murguia MD 01/12/2023 Telephone Central Registration [address] [place] [address] Debbie Blevins PA Insurance Question (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 and the company # lm to verifiy claim) 12/31/2022 Telephone [facility] [address] [place] [phone] Debbie Blevins PA Letter/form Request 12/29/2022 1:00 PM EST Office Visit [facility] [address] [place] [phone] Debbie Blevins PA Injury of left shoulder, subsequent encounter (Primary Dx); Weakness of shoulder 12/26/2022 Telephone [facility] [address] [place] [phone] Debbie Blevins PA Labs/orders 12/24/2022 Telephone [facility] [address] [place] [phone] Debbie Blevins PA Patient Questions 12/24/2022 Telephone [facility] [address] [place], [place] [address], [place] [address] Debbie Blevins PA 12/22/2022 Telephone [facility] [address] [phone] Debbie Blevins PA Reschedule 12/10/2022 Telephone [facility] [address] [phone] Debbie Blevins PA Return Call 12/09/2022 Telephone [facility] [address] [phone] Debbie Blevins PA Prior Authorization Request 12/05/2022 8:00 AM EST Consult (Initial) [facility] [address] [place] [phone] Debbie Blevins PA Injury of left shoulder, initial encounter (Primary Dx); Weakness of shoulder 12/03/2022 7:15 PM EST Radiology [facility] [address] [place] [address] Injury of left shoulder, initial encounter; Work related injury 12/03/2022 6:45 PM EST Office Visit [address] [address] Sidney Roque MD Injury of left shoulder, initial encounter (Primary Dx); Work related injury 05/22/2022 4:45 PM EDT Radiology [facility] [address] [place] [address] Right knee pain, unspecified chronicity 05/22/2022 4:15 PM EDT Consult (Initial) [facility] [address] [place] [phone] Rafael Jimenez PA It band syndrome, right (Primary Dx); Pes anserinus bursitis of right knee; Chronic pain of right knee 05/21/2022 Orders Only [facility] [address] [phone] Rafael Jimenez PA 04/05/2022 Letter/Form [address] [address] 04/05/2022 11:00 AM EDT Radiology [address] [address] RLQ abdominal pain 04/05/2022 9:30 AM EDT Office Visit [address] [address] Toshia Rosario PA RLQ abdominal pain (Primary Dx) 10/12/2021 1:30 PM EST Office Visit [address] [phone] Arlen Saucedo NP Cough (Primary Dx) 05/20/2021 2:30 PM EDT Office Visit [address] [phone] Beau Abebe PA Acute pansinusitis, recurrence not specified (Primary Dx); Cough 09/21/2019 4:00 PM EST Office Visit [address] [phone] Brenna Estes NP Dysuria (Primary Dx); Acute vaginitis 02/18/2016 Telephone [facility] [address] [place] [address] Kevin Silva MD Insurance Physical ([employer]) 02/12/2016 11:00 AM EDT Office Visit [facility] [address] [phone] Mikey Babin PA Patellofemoral stress syndrome of both knees (Primary Dx) 07/23/[address] [facility] [address] [place] [address] Kevin Silva MD Referral Request 05/11/[address] [facility] [address] [place] [phone] Kevin Silva MD Referral Request 05/02/2015 2:45 PM EDT Office Visit [facility] [address] [phone] Mona Coates PA Patellofemoral syndrome, bilateral (Primary Dx); Bilateral ankle pain 04/30/2015 11:30 AM EDT Radiology [facility] [address] [place] [phone] Bilateral knee pain 04/26/2015 Orders Only [facility] [address] [phone] Mona Coates PA 04/26/2015 10:00 AM EDT CPE - Comprehensive Physical Exam [facility] [address] [place] [phone] Darlene Mcwilliams NP Health check for child over 28 days old (Primary Dx); Screening for mental disorder and developmental handicap; Childhood obesity, BMI 95-100 percentile; Need for vaccination for viral hepatitis; Knee pain, unspecified laterality 08/10/2014 Telephone [facility] [address] [phone] Jameel Chavez DPM Cancellation 06/22/2014 4:40 PM EDT Office Visit [facility] [address] [phone] Min Linn DPM Verruca plantaris (Primary Dx) 05/25/2014 3:30 PM EDT Consult (Initial) [facility] [address] [phone] Min Linn DPM Verruca plantaris (Primary Dx) 04/14/2014 1:30 PM EDT CPE - Comprehensive Physical Exam [facility] [address] [place] [phone] Kevin Silva MD Health check for child over 28 days old (Primary Dx); Screening for mental disorder and developmental handicap; BMI (body mass index), pediatric, 85% to less than 95% for age; Need for vaccination for viral hepatitis; Need for prophylactic vaccination against human papillomavirus; Plantar wart 01/12/2013 1:15 PM EDT Nurse Visit [address] [phone] Lynda Leary LVN LPN Need for vaccination against human papillomavirus (Primary Dx) 11/11/2012 10:00 AM EST CPE - Comprehensive Physical Exam [address] [address] Kevin Silva MD Health check for child over 28 days old (Primary Dx); Screening for mental disorder and developmental handicap; BMI (body mass index), pediatric, 85% to less than 95% for age; Need for vaccination against human papillomavirus; Other examination of ears and hearing 08/03/2012 1:45 PM EDT Nurse Visit [address] [phone] Lynda Leary LVN LPN Need for immunization against influenza (Primary Dx) 11/04/2011 9:00 AM EST CPE - Comprehensive Physical Exam [address] [phone] Kevin Silva MD Health check for child over 28 days old (Primary Dx); Screening for mental disorder and developmental handicap; BMI (body mass index), pediatric, 85% to less than 95% for age; Need for meningococcus vaccine; Need for iajaxunjck-fjvqozn-ne rtussis (Tdap) vaccine, adult/adolescent 09/24/2011 Orders Only [facility] [address] [place] [phone] Kevin Silva MD 09/24/2011 9:15 AM EST Office Visit [facility] [address] [place] [phone] Kevin Silva MD Vaginitis and vulvovaginitis (Primary Dx); Painful urination 07/31/2011 Orders Only [facility] [address] [place] [address] Kevin Silva MD 07/31/2011 9:45 AM EDT Office Visit [facility] [address] [place] [address] Kevin Silva MD Pain in joint involving lower leg (Primary Dx) 07/30/2011 Telephone [facility] [address] [place] [phone] Kevin Silva MD Other (concerns/ Lyme sx) 05/14/2011 Orders Only [address] [phone] Kevin Silva MD 05/14/[address] [phone] Kevin Silva MD UTI 05/14/2011 3:45 PM EDT Office Visit [address] [phone] Kevin Silva MD Dysuria (Primary Dx) 09/04/[address] [phone] Kevin Silva MD Refill Request 09/04/2010 2:45 PM EST Radiology [facility] [address] [place] [phone] Cough 09/04/2010 2:30 PM EST Office Visit [facility] [address] [place] [phone] Kevin Silva MD Cough (Primary Dx) 08/27/2010 10:00 AM EDT Office Visit [address] [phone] Kevin Silva MD Otitis media (Primary Dx) 06/19/[address] [facility] [address] [place] [address] Kevin Silva MD Medication Problem 06/17/2010 Orders Only [facility] [address] [place] [address] Kevin Silva MD 06/17/2010 10:45 AM EDT Office Visit [address] [phone] Kevin Silva MD Lyme arthritis of knee (HCC) (Primary Dx); Left knee pain 02/01/2010 10:30 AM EDT CPE - Comprehensive Physical Exam [address] [phone] Kevin Silva MD Well child visit (Primary Dx); Screening for unspecified mental disorder and developmental handicap; BMI,pediatric >= 95%; Need for prophylactic vaccination and inoculation against varicella 01/02/[address] [phone] Tianna Childress MA Allergy Testing 11/26/2009 11:15 AM EST Office Visit [address] [phone] Kevin Silva MD URI (upper respiratory infection) (Primary Dx); Acute pharyngitis 08/17/2009 11:00 AM EDT Office Visit [address] [phone] Kevin Silva MD Fever (Primary Dx); Cough; Streptococcal Sore Throat 08/07/[address] [phone] Kevin Silva MD Letter/form Request 08/02/2009 1:00 PM EDT Office Visit [address] [phone] Kevin Silva MD Wrist Injury (Primary Dx) 12/29/2008 1:15 PM EST Office Visit [address] [phone] Kevin Silva MD URI (Upper Respiratory Infection) (Primary Dx) 11/25/2008 4:30 PM EST Office Visit [facility] [address] [place] [phone] Nain Hernandez DO Acute Otitis Media (Primary Dx) 11/25/[address] [phone] Noemi Yeh RN Ear Problem 05/04/2008 Minor Procedure/Test [facility] [address] [place] [address] [facility], Unknown Provider 12/07/2007 4:15 PM EST Office Visit [facility] [address] [place] [address] Kevin Silva MD Acute Upper Respiratory Infections of Unspecified Site (Primary Dx) 10/29/[address] [facility] [address] [phone] Kevin Silva MD 10/29/2007 7:00 PM EST Office Visit [address] [phone] Kevin Silva MD ABDOMINAL PAIN (Primary Dx) 10/29/2007 Telephone [facility] [address] [place] [phone] Kevin Silva MD Other 02/16/2007 10:45 AM EDT Office Visit [facility] [address] [place] [address] Kevin Silva MD ACUTE SUPPURATIVE OTITIS MEDIA WITHOUT SPONTANEOUS RUPTURE OF EARDRUM (Primary Dx) 12/11/2006 Refill [facility] [address] [place] [address] Kevin Silva MD Refill Request 12/11/2006 Office Visit [facility] [address] [place] [phone] Kevin Silva MD Acute Suppurative Otitis Media 09/29/2006 Office Visit [facility] [address] [place] [address] Kevin Silva MD Acute Suppurative Otitis Media 07/08/2006 Office Visit [facility] [address] [place] [address] Kevin Silva MD Vaginitis and Vulvovaginitis 07/08/2006 2:00 PM EDT Orders Only [facility] [address] [place] [address] Kevin Silva MD 12/18/2005 CPE - Comprehensive Physical Exam [facility] [address] [place] [address] Kevin Silva MD Routine Infant or Child Health Check; Examination of Eyes and Vision; Examination of Ears and Hearing 12/04/2004 CPE - Comprehensive Physical Exam [facility] [address] [place] [phone] Kevin Silva MD Routine or child health check; Examination of eyes and vision; Examination of ears and hearing 11/01/2004 Telephone [facility] [address] [place] [address] Kevin Silva MD 07/26/2004 Office Visit [facility] [address] [place] [address] Kevin Silva MD Acute upper respiratory infection 12/29/2003 Office Visit [facility] [address] [place] [address] Kevin Silva MD Otitis media 11/30/2003 CPE - Comprehensive Physical Exam [facility] [address] [place] [address] Kevin Silva MD Routine infant or child health check; Need for prophylactic vaccination with tetanus-diphtheria (Td); NEED FOR PROPHYLACTIC VACCINATION AND INOCULATION AGAINST DISEASE 07/27/2003 Telephone [facility] [address] [place] [address] Kevin Silva MD 07/27/2003 Office Visit [facility] [address] [place] [address] Kevin Silva MD Acute upper respiratory infection 07/20/2003 Telephone [facility] [address] [place] [address] Kevin Silva MD 06/30/2003 Telephone [facility] [address] [place] [address] Kevin Silva MD 12/14/2002 Telephone [facility] [address] [place] [address] Kevin Silva MD 11/23/2002 CPE - Comprehensive Physical Exam [facility] [address] [place] [address] Kevin Silva MD Routine or child health check 09/19/2002 Telephone [facility] [address] [place] [address] Kevin Silva MD 09/19/2002 Office Visit [facility] [address] [place] [address] Kevin Silva MD Acute sinusitis 08/26/2002 Telephone [facility] [address] [place] [address] Kevin Silva MD 08/08/2002 Telephone [facility] [address] [place] [address] Kevin Silva MD 06/24/2002 Telephone [facility] [address] [place] [address] Kevin Silva MD 06/24/2002 Office Visit [facility] [address] [place] [address] Kevin Silva MD Acute upper respiratory infection 03/23/2002 Telephone [facility] [address] [place] [address] Kevin Silva MD 11/29/2001 Telephone [facility] [address] [place] [address] Kevin Silva MD 11/29/2001 Office Visit [facility] [address] [place] [address] Kevin Silva MD Acute upper respiratory infection 11/02/2001 CPE - Comprehensive Physical Exam [facility] [address] [place] [address] Kevin Silva MD Routine infant or child health check 09/09/2001 Office Visit [facility] [address] [place] [address] Kevin Silva MD Unspecified viral infection, in conditions classified elsewhere and of unspecified site 08/24/2001 Telephone [facility] [address] [place] [address] Kevin Silva MD 08/17/2001 Office Visit [facility] [address] [place] [address] Kevin Silva MD Acute upper respiratory infection 08/16/2001 Telephone [facility] [address] [place] [address] Kevin Silva MD 07/09/2001 Telephone [facility] [address] [place] [address] Kevin Silva MD 05/25/2001 CPE - Comprehensive Physical Exam [facility] [address] [place] [address] Kevin Silva MD Routine infant or child health check; Prophylactic vaccination against Streptococcus pneumoniae; Need for vaccination for DTP + polio 03/03/2001 Telephone [facility] [address] [place] [address] Kevin Silva MD 02/18/2001 CPE - Comprehensive Physical Exam [facility] [address] [place] [address] Kevin Silva MD Routine infant or child health check 02/10/2001 Telephone [facility] [address] [place] [address] Kevin Silva MD 01/21/2001 Office Visit [facility] [address] [place] [address] Kevin Silva MD Unspecified viral infection, in conditions classified elsewhere and of unspecified site 12/17/2000 Telephone [facility] [address] [place] [address] Kevin Silva MD 12/16/2000 Telephone [facility] [address] [place] [address] Kevin Silva MD 12/16/2000 Office Visit [facility] [address] [place] [address] Candida Schofield MD Acute upper respiratory infection 11/24/2000 Telephone [facility] [address] [place] [address] Kevin Silva MD 11/18/2000 Office Visit [facility] [address] [place] [address] Kevin Silva MD Unspecified viral infection, in conditions classified elsewhere and of unspecified site 11/16/2000 CPE - Comprehensive Physical Exam [facility] [address] [place] [address] Kevin Silva MD Routine or child health check 10/22/2000 Telephone [facility] [address] [place] [address] Kevin Silva MD 09/21/2000 CPE - Comprehensive Physical Exam [facility] [address] [place] [address] Kevin Silva MD Routine or child health check 09/07/2000 Office Visit [facility] [address] [place] [address] Kevin Silva MD Otitis media 09/02/2000 Office Visit [facility] [address] [place] [address] Kevin Silva MD Unspecified viral infection, in conditions classified elsewhere and of unspecified site 08/21/2000 Office Visit [facility] [address] [place] [address] Kevin Silva MD Unspecified viral infection, in conditions classified elsewhere and of unspecified site 08/04/2000 Telephone [facility] [address] [place] [address] Kevin Silva MD 08/04/2000 Office Visit [facility] [address] [place] [address] Kevin Silva MD Acute upper respiratory infection 07/30/2000 Telephone [facility] [address] [place] [address] Kevin Silva MD 07/24/2000 Telephone [facility] [address] [place] [address] Kevin Silva MD 07/24/2000 Office Visit [facility] [address] [place] [address] Kevin Silva MD Unspecified viral infection, in conditions classified elsewhere and of unspecified site 07/16/2000 Telephone [facility] [address] [place] [address] Kevin Silva MD 05/21/2000 CPE - Comprehensive Physical Exam [facility] [address] [place] [address] Kevin Silva MD Routine or child health check 03/25/2000 CPE - Comprehensive Physical Exam [facility] [address] [place] [address] Kevin Silva MD Routine infant or child health check 02/06/2000 Telephone [facility] [address] [place] [address] Kvein Silva MD 01/23/2000 CPE - Comprehensive Physical Exam [facility] [address] [place] [address] Kevin Silva MD Routine or child health check 01/09/2000 Telephone [facility] [address] [place] [address] Kevin Silva MD 01/09/2000 Office Visit [facility] [address] [place] [address] Kevin Silva MD Conjunctivitis 1999 Telephone [facility] [address] [place] [phone] Kevin Silva MD 1999 CPE - Comprehensive Physical Exam [facility] [address] [place] [phone] Kevin Silva MD Routine infant or child health check 1999 Telephone [facility] [address] [place] [address] Kevin Silva MD 1999 Orders Only NON [facility] [address] [place] [address] Estiven Acharya MD Allergies Active Allergy Reactions Criticality Noted Date Comments Lactose Diarrhea/GI Upset 04/14/2014 Tree Extract Angioedema High 04/24/2020 Pecans. Other nuts have not bothered her. Sugared with unknown Also walnuts Peanuts Pruritus (itching) 12/03/2022 Gluten Meal Diarrhea/GI Upset 12/03/2022 Medications Naproxen Sodium 550 MG Tab TAKE 1 TABLET (550 MG TOTAL) BY MOUTH 2 TIMES A DAY WITH MEALS. FOR MENSTRUAL RELATED PAIN 1 9 Active Levonorgest-Eth Estrad - 0.15-0.03 MG Tab None Entered 9 Active EPINEPHrine (EPIPEN) 0.3 MG/0.3ML injection syringe Inject 0.3 mg into a muscle 1 Active hydrOXYzine HCl (ATARAX) 25 MG tablet TAKE 1 TABLET (25 MG TOTAL) BY MOUTH 2 TIMES A DAY NEEDED FOR ANXIETY. 2 Active Levothyroxine Sodium (SYNTHROID, LEVOTHROID) 25 MCG tablet Take 25 mcg by mouth 1 (one) time each day 2 Active Celecoxib (CeleBREX) 200 MG capsule 1 bid prn 20 capsule 3 Active Active Problems Problem Noted Date Diagnosed Date Knee pain 05/20/2021 Muscle spasm of calf 03/21/2021 Overview (05/20/2021): Last Assessment & Plan: 3 weeks of bilateral gastrocnemius soreness with episodes of gastrocnemius shaking and tightening at night along with episodes of muscle cramping. Daytime gastrocnemius soreness present. No other symptoms, illness, exercise, or injury. Now with area on right anterior-medial gastrocnemius with visible and raised superficial vein. No warmth. Here, Mala is well appearing and comfortable. She is able to ambulate. She does have bilateral gastrocnemius tenderness on palpation. There is a visible and palpable vein on the right. There are no skin change, neurological deficits, warmth, or pallor. Pulses intact. Muscle is tender, but soft. Calf circumferences are 47 and 46 cm. No peripheral edema. DDx: muscle spasm/cramping, dehydration, electrolyte imbalance, vitamin deficiency, myositis, rhabdo Low suspicion for DVT given bilateral, reassuring exam Low suspicion for compartment syndrome given chronic nature, no injury, and reassuring exam No signs of superficial phlebitis or cellultiis at this time PLAN: - Labs: CBC, CMP, Ca, Mg, Phos, vitamin B12, vitamin D, creatine kinase - Encouraged hydration at least 2L of water per day - Encouraged foods high in potassium - Rec applying heat to muscles and then stretch and massage - Monitor for worsening pain, swelling, redness/warmth, cold/pallor, skin changes - Call or go to ED with concerns Left hand paresthesia 01/06/2021 Overview (05/20/2021): Last Assessment & Plan: Mala Birmingham is a 20 y.o. female, history of nonalcoholic fatty liver disease, lactose intolerance, on OCPs, constipation who presents with left arm tingling and mechanism of injury is not concerning, however likely muscular/tendon pathology impinging on median nerve causing median nerve distribution of paresthesias. Supportive care, with Tylenol Motrin, and rest and informed this may take months to heal, if not improved within the next 2 to 3 weeks can refer to PM&R. She works at a [employer] and is able to use 1 hands to complete the work therefore will continue working. Provided a new sling. Complex care coordination 04/24/2020 Family history of hemochromatosis 02/08/2018 On oral contraceptive pills for non-contraception indication 02/08/2018 Encounter for long-term current use of medicatio n 02/08/2018 Encounter for general adult medical examination without abnormal findings 02/08/2018 Abnormal weight gain 09/15/2017 Lactose intolerance 09/14/2017 Pain in both knees 07/15/2017 Dietary counseling 04/02/2017 Health counseling 04/02/2017 Enlarged liver 11/06/2016 Nonalcoholic fatty liver disease 11/06/2016 Hypermobility arthralgia 01/07/2016 Overweight 01/07/2016 Dysmenorrhea 04/26/2015 BMI (body mass index), pedia tric, 85% to less than 95% for age 0604/14/2014 Lactose intolerance 11/11/2012 Overview (11/11/2012): Bloating and abdominal pain with dairy intake, can tolerate small amounts. Routine health maintenance 06/18/2010 Immunizations Name Administration Dates Next Due COVID-19, mRNA (Moderna Pre Fall 2022) Monovalent, 100 mcg/0.5 ml or 50 mcg/0.25 ml dose 12/06/2021,04/02/2021,03/06/2021 DTaP 11/30/2003, 1,05/21/2000,03/25,01/23/2000 Flu Not O/W Specified, 3yrs & > 08/03/2012 HIB (PRP-T) 02/18/2001, 0,03/25/2000,01/22 HPV4 (Gardasil 4) 04/14/2014,01/12/2013,11/11/19 13 Hep A (pedi) 04/26/2015,04/14/2014 Hep B (pedi) 09/21/2000,01/23/2000,1999 IPV 11/30/2003, 1,05/25/2000,03/25,01/23/2000 Influenza,injectable,MDCK, P rsrv Fr,Quad 07/15/2022 Influenza,injectable,quad,preservative 1 MMR 11/30/2003,02/18/2001 Meningococcal ACWY (Menactra) 01/15/2017, 012 Meningococcal B (Bexsero) 04/11/2019,02/08/2018 PCV-7 05/25/2001, 1,09/21/2000,05/21 PPV23 (Pneumovax) 05/25/2001, 1,09/21/2000,05/21 Td (adult), 5 Lf tetanus tox oid, preservative free, adsorbed 10/14/2021 Tdap(Adacel) 11/04/2011 Varicella 02/01/2010,02/18/2001 influenza,seasonal,trivalent ,PF (Fluzone, Fluarix, Flulaval) 07/15/2017 Family History Medical History Relation Name Comments Arthritis/Joint disorder Father Sonu Hypertension Father Sonu Congenital heart dz Maternal grandfather Headache/Migraine Maternal grandmother Hypertension Maternal grandmother Pulmonary Disorder Maternal grandmother Thyroid Disorder Maternal grandmother Allergies (med/food/envrnmt) Mother Gavino tree nuts Arthritis/Joint disorder Mother Gavino Autoimmune dz Mother Gavino psoriasis Cancer (?Type) Mother Gavino cervical Developmental delay/Learning Disability Mother M onique dyslexia Headache/Migraine Mother Gavino Other Mother Gavino endometriosis Autoimmune dz Paternal grandfather psoria sis Hypertension Paternal grandfather Congenital heart dz Paternal grandmother Hypertension Paternal grandmother Relation Name Status Comments Brother Dalhart Alive Father Sonu Alive Maternal grandfather Alive Maternal grandmother Alive Mother Gavino Alive Paternal grandfather Alive Paternal grandmother Alive Sister Christina Alive Social History Smoking Status as of 11/29/2024 Tobacco Use Types Packs/Day Years Used Date Smoking Tobacco: Never Assessed Intimate Partner Violence Answer Date R ecorded Fear of Current or Ex-Partner Not on file Emotionally Abused Not on file 06/27/2023 Physically Abused Not on file 06/27/2023 Sexually Abused Not on file 06/27/2023 Feel Safe at Home Not on file 06/27/2023 Sex and Gender Information Value Date Recorded Sex Assigned at Not on file Legal Sex Female 12:23 PM EDT Gender Identity Not on file Sexual Orientation Not on file Last Filed Vital Signs Vital Sign Reading Time Taken Comments Blood Pressure 134/81 07/29/2023 6:04 PM EDT Pulse 71 07/29/2023 6:04 PM EDT Temperature 36.7 ??C (98 ??F) 07/29/2023 6:04 PM EDT Respiratory Rate 16 07/29/2023 6:04 PM EDT Oxygen Saturation 98% 12/03/2022 6:44 PM EST Inhaled Oxygen Concentration - - Weight 84.8 kg (187 lb) 04/26/2015 10:02 AM EDT Height 168.9 cm (5' 6.5 ) 04/26/2015 10:02 AM ED T Body Mass Index 29.73 04/26/2015 10:02 AM EDT Body Mass Index Percentile 95.80% 04/26/2015 10: 02 AM EDT Growth Chart: [facility] (Girls, 2- 20 Years) Plan of Treatment Not on file Procedures * Due to [place] state law, this organization might not be sharing negative HIV tests. Procedure Name Priority Date/Time Associated Diagnosis Comments CT ABDOMEN AND PELVIS W/ CONTRAST (DX:CHRONIC ABDOMINAL PAIN) (WITHIN 1 MONTH) STAT (All results called to provider) 07/29/2023 7:57 PM EDT CBC INCLUDES DIFFERENTIAL AND PLATELET COUNT STAT (All results called to provider) 07/29/2023 6:37 PM EDT Abdominal pain, unspecified abdominal location RLQ abdominal pain COMPREHENSIVE METABOLIC PANEL WITH GFR STAT (All results called to provider) 07/29/2023 6:37 PM EDT Abdominal pain, unspecified abdominal location RLQ abdominal pain LIPASE, SERUM STAT (All results called to provider) 07/29/2023 6:37 PM EDT Abdominal pain, unspecified abdominal location RLQ abdominal pain TEST, URINE - STATION Routine 07/29/2023 6:17 PM EDT Abdominal pain, unspecified abdominal location URINALYSIS, DIP STICK/TABLET REAGENT; AUTOMATED, W/O MICROSCOPY Routine 07/29/2023 6:09 PM EDT Abdominal pain, unspecified abdominal location XRAY SHOULDER COMPLETE MIN 2 VWS 01/22/2023 XRAY SHOULDER COMPLETE MIN 2 VWS - LEFT STAT (All results called to provider) 12/03/2022 7:28 PM EST Injury of left shoulder, initial encounter Work related injury XR KNEE ORTHO - RT (DX: KNEE PAIN *NO INJURY*)(AGE>=35, CAN WEIGHT-BEAR) Routine 05/22/2022 4:16 PM EDT Right knee pain, unspecified chronicity CT ABDOMEN AND PELVIS W/O CONTRAST STAT (All results called to provider) 04/05/2022 10:41 AM EDT RLQ abdominal pain COMPREHENSIVE METABOLIC PANEL WITH GFR STAT (All results called to provider) 04/05/2022 9:59 AM EDT RLQ abdominal pain CBC (INCLUDES DIFF/PLT) (ON-SITE) STAT (All results called to provider) 04/05/2022 9:59 AM EDT RLQ abdominal pain COVID19 AND INFLUENZA A AND B PCR (STATION) Routine 10/12/2021 Cough COVID19 AND INFLUENZA A AND B PCR (STATION) Routine 05/20/2021 4:22 PM EDT Cough CULTURE, URINE, ROUTINE Routine 09/21/2019 4:35 PM EST Dysuria Acute vaginitis URINALYSIS, MICROSCOPIC Routine 09/21/2019 4:35 PM EST Dysuria Acute vaginitis BV/VAGINITIS PANELDNA PROBE(AFFIRM) Routine 09/21/2019 4:35 PM EST Dysuria Acute vaginitis TEST, URINE - STATION Routine 09/21/2019 4:03 PM EST Dysuria Acute vaginitis URINE DIPSTICK - STATION Routine 09/21/2019 4:02 PM EST Dysuria Acute vaginitis XRAY KNEE FOR ORTHO - BILAT Routine 04/30/2015 11:57 AM EDT Bilateral knee pain DEVELOPMENTAL SCREENING, WITH INTERPRETATION AND REPORT, USING STANDARDIZED INSTRUMENT Routine 04/26/2015 10:48 AM EDT Screening for mental disorder and developmental handicap DEVELOPMENTAL SCREENING, WITH INTERPRETATION AND REPORT, USING STANDARDIZED INSTRUMENT Routine 04/14/2014 1:51 PM EDT Screening for mental disorder and developmental handicap DEVELOPMENTAL SCREENING, WITH INTERPRETATION AND REPORT, USING STANDARDIZED INSTRUMENT Routine 11/11/2012 10:30 AM EST Screening for mental disorder and developmental handicap DEVELOPMENTAL SCREENING, WITH INTERPRETATION AND REPORT, USING STANDARDIZED INSTRUMENT Routine 11/04/2011 9:35 AM EST Screening for mental disorder and developmental handicap URINALYSIS, DIP ONLY STAT (All results called to provider) 09/24/2011 10:30 AM EST Painful urination URINALYSIS, MICROSCOPIC Routine 09/24/2011 9:41 AM EST Painful urination CULTURE, URINE, ROUTINE Routine 09/24/2011 9:41 AM EST Painful urination ERYTHROCYTE SEDIMENTATION RATE (ESR) Routine 07/31/2011 10:25 AM EDT Pain in joint involving lower leg CBC INCLUDES DIFFERENTIAL AND PLATELET COUNT Routine 07/31/2011 10:25 AM EDT Pain in joint involving lower leg URINALYSIS, DIP ONLY ( SITE STAT ONLY) STAT (All results called to provider) 05/14/2011 12:59 PM EDT Dysuria URINALYSIS, COMPLETE (DIP & MICRO) Routine 05/14/2011 Dysuria CULTURE, URINE Routine 05/14/2011 Dysuria XRAY CHEST, 2 VIEWS, PA & LATERAL FC Routine 09/04/2010 3:23 PM EST Cough LYME WESTERN BLOT, IGG & IGM PANEL Routine 06/17/2010 LYME DISEASE PANEL W/WB REFLEX Routine 06/17/2010 Left knee pain SED RATE ESR Routine 06/17/2010 Left knee pain CBC 5 PART DIFF Routine 06/17/2010 Left knee pain DEVELOPMENTAL SCREENING, WITH INTERPRETATION AND REPORT, USING STANDARDIZED INSTRUMENT Routine 02/01/2010 11:40 AM EDT Screening for unspecified mental disorder and developmental handicap XRAY CHEST 2 VIEWS PA & LAT Routine 08/17/2009 11:38 AM EDT XRAY WRIST COMPLETE MIN 3 VWS - LEFT Routine 08/02/2009 1:48 PM EDT XRAY WRIST COMPLETE MIN 3 VWS 05/04/2008 12:00 AM EDT XRAY ABDOMEN SINGLE AP Routine 10/29/2007 7:49 PM EST URINE DIPSTICK - STATION Routine 10/29/2007 7:32 PM EST ABDOMINAL PAIN CULTURE, URINE Routine 10/29/2007 ABDOMINAL PAIN URINALYSIS, DIP ONLY ( SITE STAT ONLY) Routine 07/08/2006 URINARY TRACT INFECTION AFTER IMMOBILITY LEAD, BLOOD Routine 11/23/2002 10:31 AM EST LEAD, BLOOD Routine 11/02/2001 11:32 AM EST LEAD, BLOOD Routine 09/21/2000 12:11 PM EST CBC 5 PART DIFF Routine 09/21/2000 12:11 PM EST ARTERIAL BLOOD GAS Routine 1999 10:28 AM EST ARTERIAL BLOOD GAS Routine 1999 9: 16 AM EST ARTERIAL BLOOD GAS Routine 1999 7: 28 AM EST ARTERIAL BLOOD GAS Routine 1999 6: 14 AM EST CBC WITH MANUAL DIFF Routine 1999 5:50 AM EST CBC 5 PART DIFF Routine 1999 5:50 AM EST CULTURE, BLOOD #1 Routine 1999 5:2 5 AM EST DIRECT DONNIE Routine 1999 3:49 AM EST BLOOD TYPE (ABO&RH) Routine 1999 3 :49 AM EST Results * Due to [place] state law, this organization might not be sharing negative HIV tests. * CT ABDOMEN AND PELVIS W/ CONTRAST (DX: ABDOMINAL PAIN R10.9/ 789.00) (WITHIN 1 WK) FC (07/29/2023 7:57 PM EDT) Anatomical Region Laterality Modality Computed Tomogra phy 07/29/2023 8:16 PM EDT Narrative 07/29/2023 8:16 PM EDT CONTRAST: 100 mL Omnipaque 350 Exam: Contrast-enhanced CT abdomen and pelvis with multiplanar reformats. ?? Comparison: 04/05/2022. ?? Findings: CT abdomen: Lung bases are clear. Liver reveals scattered very subtle hyperenhancing lesions or areas (for example, 11 mm AP dimension segment 4A focus on 2; 32, 2.2 cm transverse dimension segment 7 area on 2; 31), and 16 mm AP dimension lesion or area involving segment 5 on 2; 49). These are nonspecific and likely are related to areas of mild differential perfusion although other considerations such as atypical hemangiomas, FNH, etc. can not be excluded. No other focal lesions. No ductal dilatation. ??Gallbladder is unremarkable. ??Spleen, pancreas, and adrenal glands appear unremarkable. ?? Kidneys are unremarkable bilaterally. No free intraperitoneal fluid or retroperitoneal masses or adenopathy. ??Abdominal aorta is normal caliber. ?? Bowel loops reveal no abnormal wall thickening or distention. The appendix is unremarkable ([id number]; 49-51). CT pelvis: Uterus is mildly retroverted. ??Uterus and adnexal structures otherwise unremarkable. Urinary bladder is free of gross filling defects. No pelvic masses, fluid or adenopathy. ?? Osseous structures reveal no destructive osseous lesions. Impression: 1. No acute abnormality or CT explanation for right lower quadrant pain. ?? Specifically, unremarkable appendix. ?? 2. Subtle areas of hyperenhancement within the liver as described above, likely related to areas of differential perfusion. However, if further imaging characterization is clinically warranted, nonemergent MRI could be performed. Procedure Note Bret Morris MD - 07/29/2023 CONTRAST: 100 mL Omnipaque 350 Exam: Contrast-enhanced CT abdomen and pelvis with multiplanar reformats. Comparison: 04/05/2022. Findings: CT abdomen: Lung bases are clear. Liver reveals scattered very subtle hyperenhancing lesions or areas (for example, 11 mm AP dimension [id number] focus on 2; 32, 2.2 cm transverse dimension segment 7 area on 2; 31), and16 mm AP dimension lesion or area involving segment 5 on 2; 49). These are nonspecific and likely are related to areas of mild differential perfusion although other considerations such as atypical hemangiomas, FNH, etc. cannot be excluded. No other focal lesions. No ductal dilatation. Gallbladder is unremarkable. Spleen, pancreas, and adrenal glands appear unremarkable. Kidneys are unremarkable bilaterally. No free intraperitoneal fluid or retroperitoneal masses or adenopathy. Abdominal aorta is normal caliber. Bowel loops reveal no abnormal wall thickening or distention. The appendixis unremarkable ([id number]; 49-51). CT pelvis: Uterus is mildly retroverted. Uterus and adnexal structures otherwise unremarkable. Urinary bladder is free of gross filling defects.No pelvic masses, fluid or adenopathy. Osseous structures reveal no destructive osseous lesions. Impression: 1. No acute abnormality or CT explanation for right lower quadrant pain. Specifically, unremarkable appendix. 2. Subtle areas of hyperenhancement within the liver as described above,likely related to areas of differential perfusion. However, if further imaging characterization is clinically warranted, nonemergent MRI could beperformed. [facility] Reema Dee NP IMG CT WITH CONTRAST OR DERABLES Final Result * (ABNORMAL) CBC INCLUDES DIFFERENTIAL AND PLATELET COUNT (07/29/2023 6:37 PM EDT) Only the most recent of2 resultswithin the time period is included. WBC 10.7 3.8 - 10.8 Thousand/u L [facility] RBC 5.22(H) 3.80 - 5.10 Million/uL [facility] Hemoglobin 13.9 11.7 - 15.5 g/dL [facility] Hematocrit 41.4 35.0 - 45.0 % [facility] MCV 79.3(L) 80.0 - 100.0 fL [facility] MCH 26.6(L) 27.0 - 33.0 pg [facility] MCHC 33.6 32.0 - 36.0 g/dL [facility] RDW 12.9 11.0 - 15.0 % [facility] PLT 308 140 - 400 Thousand/u L [facility] MPV 10.5 7.5 - 12.5 fL [facility] Neutrophils # 6934 1500 - 7800 cells/uL [facility] Lymphocytes # 3221 850 - 3900 cells/uL [facility] Monocytes # 417 200 - 950 cells/uL [facility] Eosinophils # 96 15 - 500 cells/uL [facility] Basophils # 32 0 - 200 cells/uL [facility] Neutrophils % 64.8 % [facility] Lymphocytes % 30.1 % [facility] Monocytes % 3.9 % [facility] Eosinophils % 0.9 % [facility] Basophils % 0.3 % [facility] 07/29/2023 6:37 PM EDT 07/29/2023 7:02 PM EDT Analisa Dee NP LAB SAME DAY RESULT Fin al Result [facility] [address] [place] [address] * LIPASE, SERUM (07/29/2023 6:37 PM EDT) Pathologist [facility] Lipase 23 7 - 60 U/L [facility] 07/29/2023 6:37 PM EDT 07/29/2023 7:02 PM EDT Analisa Gachunga Machira PROFESSIONAL SYSTEM ADMINISTRATOR LABORATORY Final R esult [facility] [address] [place] [address] * (ABNORMAL) COMPREHENSIVE METABOLIC PANEL WITH GFR (07/29/2023 6:37 PM EDT) Only the most recent of2 resultswithin the time period is included. Glucose 102(H) 65 - 99 mg/dL [facility] Comment: ? Fasting reference interval For someone without known diabetes, a glucose value between 100 and 125 mg/dL is consistent with prediabetes and should be confirmed with a follow-up test. Urea Nitrogen Blood (BUN) 14 7 - 25 mg/dL [facility] Creatinine 0.70 0.50 - 0.96 mg/dL [facility] EGFR 125 > OR = 60 mL/min/1. 73m2 [facility] BUN/Creatinine Ratio SEE NOTE: (calc) [facility] Comment: ?? Not Reported: BUN and Creatinine are within ?? reference range. Sodium 141 135 - 146 mmol/L [facility] Potassium 4.3 3.5 - 5.3 mmol/L [facility] Chloride 104 98 - 110 mmol/L [facility] Carbon dioxide 26 20 - 32 mmol/L [facility] Calcium 9.3 8.6 - 10.2 mg/dL [facility] Protein Total (Serum) 6.9 6.1 - 8.1 g/dL [facility] Albumin 4.3 3.6 - 5.1 g/dL [facility] Globulin 2.6 1.9 - 3.7 g/dL (calc) [facility] Albumin/Globuli n 1.7 1.0 - 2.5 (calc) [facility] Bilirubin Total 0.2 0.2 - 1.2 mg/dL [facility] Alkaline phosphatase 68 31 - 125 U/L [facility] AST (SGOT) 16 10 - 30 U/L [facility] ALT (SGPT) 13 6 - 29 U/L [facility] 07/29/2023 6:37 PM EDT 07/29/2023 7:02 PM EDT Narrative [facility] - 07/29/2023 7:38 PM EDT Please note that this estimated GFR does not include an adjustment for the patient's height or weight, and can therefore, be viewed as reliable only for patients with heights between 60 and 72 . More precise quantification using a 24-hour urine sample or height-based algorithm is recommended for patients outside of this range of height and for those individuals with more precise needs for GFR calculation. Analisa Dee LABORATORY Final R esult [facility] [address] [facility] [address] * TEST, URINE - STATION (07/29/2023 6:17 PM EDT) Only the most recent of2 resultswithin the time period is included. HCG, Qualitative, Urine NEGATIVE 07/29/2023 6:17 PM EDT [facility] [place] PROFESSIONAL SYSTEM ADMINISTRATOR STATION LAB Final R esult * [facility] URINALYSIS (07/29/2023 6:09 PM EDT) Color (Urine) Yellow YELLOW [facility] Clarity Clear Clear [facility] Leukocyte Negative Negative [facility] Nitrite Negative Negative [facility] Urobilinogen (Urine) 0.2 0-1 E.U./dL [facility] Protein Negative Negative [facility] PH (Urine) 5.5 5.0 - 8.0 [facility] Blood (Urine) Negative Negative [facility] Specific [place] (Urine) >=1.030 1.005 - 1.030 [facility] Ketones (Urine) Negative Negative [facility] Bilirubin (Urine) Negative Negative [facility] Glucose (Urine) Negative Negative [facility] 07/29/2023 6:09 PM EDT 07/29/2023 6:09 PM EDT Narrative [facility] - 07/29/2023 6:09 PM EDT SN#:[id number] Location:[facility] LAB SAME DAY RESULT Fin al Result [facility] * XRAY SHOULDER COMPLETE MIN 2 VWS (01/22/2023) 01/22/2023 Narrative 01/22/2023 Ordered by an unspecified provider. us Unknown Provider GENERAL IMAGING- OTHER Final Re sult * XRAY SHOULDER COMPLETE MIN 2 VWS - LEFT FC (12/03/2022 7:28 PM EST) Anatomical Region Laterality Modality UPPER EXTREMITY Radiographic Carolyn ging 12/03/2022 7:50 PM EST Narrative 12/03/2022 7:50 PM EST CONTRAST: 3 views left shoulder Comparison: None Findings: No fractures or dislocations. No significant arthritic change. No radiopaque foreign body. Normal visualized left chest. Impression: 1. Normal left shoulder Procedure Note Bret Morris MD - 12/03/2022 CONTRAST: 3 views left shoulder Comparison: None Findings: No fractures or dislocations. No significant arthritic change. No radiopaque foreign body. Normal visualized left chest. Impression: 1. Normal left shoulder us Sidney Roque MD IMG XRAY NO CONTRAST ORDERABLES Final Result * XR KNEE ORTHO - RT (DX: [...] XRAY NO CONTRAST ORDERABL ES Final Result * CT ABDOMEN AND PELVIS W/O CONTRAST FC (04/05/2022 10:41 AM EDT) Anatomical Region Laterality Modality Computed Tomogra phy 04/05/2022 10:5 5 AM EDT Narrative 04/05/2022 10:55 AM EDT CONTRAST: EXAM: ??CT OF ABDOMEN/PELVIS WITHOUT INTRAVENOUS CONTRAST: COMPARISON: None TECHNIQUE: ??Enteric contrast was administered prior to exam. ??Contiguous axial images from lung bases through ischial tuberosities, with sagittal and coronal reformatted images. FINDINGS: The lung bases are clear. ??No pleural effusion identified. The retroperitoneal structures are unremarkable. No renal stone or urinary tract obstruction is identified. Gallbladder and bile ducts unremarkable. No abnormality of liver, spleen, or pancreas identified. Aorta and inferior vena cava unremarkable. Multiple mildly enlarged mesenteric root lymph nodes. ??No free fluid. Stomach and small bowel structures are unremarkable. Appendix well-visualized and normal. No significant large bowel pathology is appreciated. Pelvic soft tissue structures are normal appearing. ??No adnexal lesion. No significant bone lesion is identified. IMPRESSION: ?? 1. ??Normal appendix. 2. ??Borderline enlarged mesenteric root lymph nodes, a nonspecific finding, could be related to mesenteric adenitis. Procedure Note Boaz Roland MD - 04/05/2022 CONTRAST: EXAM: CT OF ABDOMEN/PELVIS WITHOUT INTRAVENOUS CONTRAST: COMPARISON: None TECHNIQUE: Enteric contrast was administered prior to exam. Contiguousaxial images from lung bases through ischial tuberosities, with sagittal andcoronal reformatted images. FINDINGS: The lung bases are clear. No pleural effusion identified. The retroperitoneal structures are unremarkable. No renal stone or urinary tract obstruction is identified. Gallbladder and bile ducts unremarkable. No abnormality of liver, spleen, or pancreas identified. Aorta and inferior vena cava unremarkable. Multiple mildly enlarged mesenteric root lymph nodes. No free fluid. Stomach and small bowel structures are unremarkable. Appendix well-visualized and normal. No significant large bowel pathology is appreciated. Pelvic soft tissue structures are normal appearing. No adnexal lesion. No significant bone lesion is identified. IMPRESSION: 1. Normal appendix. 2. Borderline enlarged mesenteric root lymph nodes, a nonspecificfinding, could be related to mesenteric adenitis. us Toshia CHOWDHURY IMG CT NO CONTRAST ORDERABLES Final Result * (ABNORMAL) CBC (INCLUDES DIFF/PLT) (ON-SITE) (04/05/2022 9:59 AM EDT) WBC 7.2 3.8 - 10.8 Thousand/u L [facility] RBC 5.12(H) 3.80 - 5.10 Million/uL [facility] Hemoglobin 13.9 11.7 - 15.5 g/dL [facility] Hematocrit 42.4 35.0 - 45.0 % [facility] MCV 82.8 80.0 - 100.0 fL [facility] MCH 27.1 27.0 - 33.0 pg [facility] MCHC 32.8 32.0 - 36.0 g/dL [facility] RDW 12.4 11.0 - 15.0 % [facility] PLT 259 140 - 400 Thousand/u L [facility] MPV 10.6 7.5 - 12.5 fL [facility] Neutrophils # [id number] 1500 - 7800 cells/uL [facility] Lymphocytes # 1519 850 - 3900 cells/uL [facility] Monocytes # 302 200 - 950 cells/uL [facility] Eosinophils # 130 15 - 500 cells/uL [facility] Basophils # 29 0 - 200 cells/uL [facility] Neutrophils % 72.5 % [facility] Lymphocytes % 21.1 % [facility] Monocytes % 4.2 % [facility] Eosinophils % 1.8 % [facility] Basophils % 0.4 % [facility] 04/05/2022 9:59 AM EDT 04/05/2022 10:19 AM EDT Narrative Resulting Agency Comment [id number] Toshia Rosario PA LAB SAME DAY RESULT Final Resu lt Performing Organization Address City/[facility]/ZIP Co de Phone Number [facility] [address] [place] [address] * COVID19 AND INFLUENZA A AND B PCR (STATION) (10/12/2021) Only the most recent of2 resultswithin the time period is included. COVID-19 PCR NOT DETECTED Influenza A NOT DETECTED Influenza B NOT DETECTED Anterior Nares 10/12/2021 Arlen Saucdeo PROFESSIONAL SYSTEM ADMINISTRATOR [facility] LAB Final Resul t * BV/VAGINITIS PANELDNA PROBE (09/21/2019 4:35 PM EST) Pathologist [facility] Trichomonas vaginalis rRNA (Genital) NOT DETECTED NOT DETECTED [facility] Gardnerella vaginalis rRNA (Genital) NOT DETECTED NOT DETECTED [facility] Ebth sp rRNA (Vag) NOT DETECTED NOT DETECTED [facility] 09/21/2019 4:35 PM EST 09/21/2019 11:59 PM EST Narrative Resulting Agency Comment [id number] Brenna Estes PROFESSIONAL SYSTEM ADMINISTRATOR LABORATORY Final Resul t Performing Organization Address [facility] Co de Phone Number [facility] [address] [place] [address] * (ABNORMAL) CULTURE, URINE, ROUTINE (09/21/2019 4:35 PM EST) Only the most recent of2 resultswithin the time period is included. Bacteria culture (Urine) SEE NOTE(A) [facility] Comment: ??CULTURE, URINE, ROUTINE ??Micro Number: ?[id number] ??Test Status: ? Final ??Specimen Source: ?? URINE ??Specimen Quality: ??Adequate ??Result: ?10,000-50,000 CFU/mL of Enterococcus faecalis ?E.faecalis ?INT ?? MARIEL ?? AMPICILLIN ? S ? <=2 ?? NITROFURANTOIN ? S ? <=16 ?? VANCOMYCIN ? S ? 1 S=Susceptible ??I=Intermediate ??R=Resistant ??* = Not Tested NR = Not Reported ??NN = See Therapy Comments 09/21/2019 4:35 PM EST 09/21/2019 11:59 PM EST Narrative Resulting Agency Comment [id number] us Brenna Estes PROFESSIONAL SYSTEM ADMINISTRATOR LABORATORY Final Resul t [facility] [address] [place] [address] * URINALYSIS, MICROSCOPIC (09/21/2019 4:35 PM EST) Only the most recent of2 resultswithin the time period is included. WBC (Urine) NONE SEEN < OR = 5 /HPF [facility] RBC (Urine Sed) 0-2 < OR = 2 /HPF [facility] Epithelial cells.squamous (Urine sed) NONE SEEN < OR = 5 /HPF [facility] Bacteria (Urine) NONE SEEN NONE SEEN /HPF [facility] Urate crystals (Urine sed) FEW NONE OR FEW /HPF [facility] Hyaline casts (Urine sed) NONE SEEN NONE SEEN /LPF [facility] 09/21/2019 4:35 PM EST 09/21/2019 11:59 PM EST Narrative Resulting Agency Comment [id number] us Brenna Estes PROFESSIONAL SYSTEM ADMINISTRATOR LAB SAME DAY RESULT Final R esult [facility] [address] [place] [address] * (ABNORMAL) URINE DIPSTICK - STATION (09/21/2019 4:02 PM EST) Only the most recent of2 resultswithin the time period is included. COLOR (URINE) yellow APPEARANCE (URINE) clear Clear Leukocyte esterase (Urine) neg Neg NITRITE (URINE) neg Neg UROBILINOGEN, URINE 0.2 Neg PROTEIN (URINE) neg Neg PH (URINE) 5.0 5.0 - 8.0 BLOOD (URINE) mod Neg SPECIFIC GRAVITY 1.030 1.001 - 1.035 UR KETONES 5 Neg BILIRUBIN (URINE) neg Neg GLUCOSE (URINE) neg Neg Urine specimen (specimen) 09/21/2019 4:02 PM EST us Sidney Roque MD [facility] Final Result * XRAY KNEE FOR ORTHO - BILAT [...] XRAY NO CONTRAST ORDERABLE S Final Result * URINALYSIS, DIP ONLY ( SITE STAT ONLY) (09/24/2011 10:30 AM EST) COLOR (URINE) Yellow [facility] (CLIA# [id number]) APPEARANCE (URINE) Clear [facility] (CLIA# [id number]) SPECIFIC GRAVITY 1.025 1.001 - 1.035 [facility] (CLIA# [id number]) PH (URINE) 6.0 5.0 - 8.0 [facility] (CLIA# [id number]) PROTEIN (URINE) Negative Neg [facility] (CLIA# [id number]) GLUCOSE (URINE) Negative Neg [facility] (CLIA# [id number]) Ketones (Urine) Negative Neg [facility] (CLIA# [id number]) BILIRUBIN (URINE) Negative Neg [facility] (CLIA# [id number]) BLOOD (URINE) Negative Neg [facility] (CLIA# [id number]) WBC (URINE) Negative Neg [facility] (CLIA# [id number]) NITRITE (URINE) Negative Neg [facility] (CLIA# [id number]) Urine specimen (specimen) 09/24/2011 10:30 AM EST Narrative [facility] (CLIA# [id number]) - 09/24/2011 12:46 PM EST Micro and culture already ordered per provider. us Kevni Silva MD LAB SAME DAY RESULT Final Resu lt [facility] (CLIA# [id number]) [address] [place] [address] * ERYTHROCYTE SEDIMENTATION RATE (ESR), MICHELLE (07/31/2011 10:25 AM EDT) Sedimentation Rate Marianoegren (ESR) 4 < OR = 20 mm/h [facility] Comment:{SED RATE BY GORGE MARTINEZ {[id number]) 07/31/2011 10:2 5 AM EDT 07/31/2011 6:38 PM EDT Narrative Resulting Agency Comment [id number] us Kevin Silva MD LAB SAME DAY RESULT Final Resu lt [facility] [address] [facility] [place] [address] * URINALYSIS, DIP ONLY ( SITE STAT ONLY) (05/14/2011 12:59 PM EDT) Only the most recent of2 resultswithin the time period is included. COLOR (URINE) yellow [facility] (CLIA# [id number]) APPEARANCE (URINE) clear [facility] (CLIA# [id number]) SPECIFIC GRAVITY 1.025 1.001 - 1.035 [facility] (CLIA# [id number]) PH (URINE) 6.0 5.0 - 8.0 [facility] (CLIA# [id number]) PROTEIN (URINE) neg Neg - Neg [facility] (CLIA# [id number]) GLUCOSE (URINE) neg Neg - Neg [facility] (CLIA# [id number]) Ketones (Urine) neg Neg - Neg [facility] (CLIA# [id number]) BILIRUBIN (URINE) neg Neg - Neg [facility] (CLIA# [id number]) BLOOD (URINE) neg Neg - Neg [facility] (CLIA# [id number]) WBC (URINE) neg Neg - Neg [facility] (CLIA# [id number]) NITRITE (URINE) neg Neg - Neg [facility] (CLIA# [id number]) Urine specimen (specimen) 05/14/2011 12:[address] [facility] (CLIA# [id number]) - 05/14/2011 1:00 PM EDT Micro and culture already ordered per provider. Kevin Silva MD LAB SAME DAY RESULT Final Resu lt [facility] (CLIA# [id number]) [address] [place] [address] * CULTURE, URINE (05/14/2011) Only the most recent of2 resultswithin the time period is included. URINE CULTURE CLEAN VOID SEE TEXT [facility] [...] FOR OPTIMAL RESULTS. us Kevin Silva MD LABORATORY Final Result [facility] [address] [place] [address] * (ABNORMAL) URINALYSIS, COMPLETE (DIP & MICRO) [...] 5 PM EDT Narrative [facility] - 05/15/2011 7:08 AM EDT Report Comments: URINE CULTURE PERFORMED FROM UNPRESERVED URINE. RESULTS MAY BE AFFECTED. PLEASE SEND URINE IN MARTÍNEZ TOP URINE CULTURE TUBE FOR OPTIMAL RESULTS. us Kevin Silva MD LAB SAME DAY RESULT Final Resu lt [facility] [address] [place] [address] * XRAY CHEST, 2 VIEWS, PA & LATERAL FC (09/04/2010 3:23 PM EST) Anatomical Region Laterality Modality CHEST Radiographic Carolyn ging 09/04/2010 3:30 PM EST Narrative 09/04/2010 3:30 PM EST Chest two views. Comparison 08/17/09 The cardiomediastinal contour, pulmonary vasculature, and lung barksdale are within normal limits. ??Pleural reflections are clear and bony structures are unremarkable.No change. IMPRESSION: ??No active disease.No change Procedure Note Cedrick Clark MD - 09/04/2010 Chest two views. Comparison 08/17/09 The cardiomediastinal contour, pulmonary vasculature, and lung barksdale are within normal limits. Pleural reflections are clear and bony structures are unremarkable.No change. IMPRESSION: No active disease.No change us Kevin Silva MD IMG XRAY NO CONTRAST ORDERABLE S Final Result * (ABNORMAL) LYME DISEASE PANEL W/WB REFLEX (06/17/2010) Pathologist [facility] LYME (B. BURGDORFERI) AB SCREEN 7.5(A) [facility] Comment: < OR = 0.90 ?? NEGATIVE 0.91 - 1.09 ?? EQUIVOCAL > OR = 1.10 ?? POSTIVE LYME EIA SCREEN IS REFLEXED TO WESTERN BLOT IF POSITIVE. 06/17/2010 06/17/2010 6:2 0 PM EDT us Kevin Silva MD LABORATORY Final Result [facility] [address] [place] [address] * (ABNORMAL) LYME WESTERN BLOT, IGG & [...] EXPOSURE. 06/17/2010 06/17/2010 6:2 0 PM EDT us Kevin Silva MD LABORATORY Final Result Performing Organization Address City/[facility] Co de Phone Number [facility] [address] [place] [address] * (ABNORMAL) SED RATE ESR (06/17/2010) Pathologist [facility] ESR (ERYTHROCYTE SEDIMENTATION RATE) 44(H) 0 - 20 MM/HR [facility] 06/17/2010 06/17/2010 6:2 0 PM EDT us Kevin Silva MD LAB SAME DAY RESULT Final Resu lt Performing Organization Address City/[facility] Co de Phone Number [facility] [address] [place] [address] * (ABNORMAL) CBC 5 PART DIFF (06/17/2010) WHITE BLOOD COUNT 7.8 4.5 - 13.5 [...] RESULT Final Resu lt [facility] [address] [place] [address] * XRAY CHEST 2 VIEWS PA & LAT (08/17/2009 11:38 AM EDT) RADIOLOGY REPORT PA and lateral chest: The cardiomediastinal contour, pulmonary vasculature, and lung barksdale are within normal limits. ??Pleural reflections are clear and bony structures are unremarkable. IMPRESSION: ??No active disease. Anatomical Region Laterality Modality Other 08/17/2009 11:3 8 AM EDT Narrative 08/18/2009 8:09 AM EDT Reason for Study/History: cough and fever TEST(S) PROCESSED BY [facility] AT [facility] us Kevin Silva MD GENERAL IMAGING- OTHER Final R esult * XRAY WRIST COMPLETE MIN 3 VWS - LEFT (08/02/2009 1:48 PM EDT) RADIOLOGY REPORT Left wrist: There is a subtle undulation of the metaphysis of the radius suggesting nondisplaced buckle fracture. This is primarily noted dorsally on the lateral view with subtle corresponding undulation radially. Anatomical Region Laterality Modality Other 08/02/2009 1:48 PM EDT Narrative 08/02/2009 2:13 PM EDT Reason for Study/History: trauma [facility] Kevin [facility] MD GENERAL IMAGING- OTHER Final R esult * XRAY WRIST COMPLETE MIN 3 VWS (05/04/2008 12:00 AM EDT) Anatomical Region Laterality Modality Other 05/04/2008 Narrative Transcriptions [facility], Unknown Provider - 05/09/2008 12:00 AM EDT us Unknown Provider [facility] GENERAL IMAGING- OTHER Fin al Result * XRAY ABDOMEN SINGLE AP (10/29/2007 7:49 PM EST) Pathologist [facility] RADIOLOGY REPORT Abdomen: Single supine image. No previous available. Left colon appears distended without thickened folds. Moderate stool suggested rectosigmoid region. Prominent bowel loop upper central abdomen, likely transverse colon. In the remainder of the abdomen, there is a paucity of bowel gas. No abnormal soft tissue outlines or calcifications identified. Impression: Nonspecific bowel gas pattern. [facility] (CLIA# [id number]) Anatomical Region Laterality Modality Other 10/29/2007 7:49 PM EST Narrative 10/30/2007 8:46 AM EST Reason for Study/History: abd.pain and vomiting TEST(S) PROCESSED BY [facility] AT [facility] Kevin Silva MD GENERAL IMAGING- OTHER Final R esult * LEAD, BLOOD (11/23/2002 10:31 AM EST) Only the most recent of2 resultswithin the time period is included. LEAD <6 0 - 10 ug/dL [facility] (CLIA# [id number]) 11/23/2002 10:3 1 AM EST 11/24/2002 12:30 PM EST Kevin Silva MD LABORATORY Final Result Performing Organization Address City/[facility]/ZIP Co de Phone Number [facility] (CLIA# [id number]) [address] [place] [address] * LEAD, BLOOD (11/02/2001 11:32 AM EST) LEAD 8 0 - 10 ug/dL [facility] (CLIA# [id number]) 11/02/2001 11:3 2 AM EST 11/02/2001 11:32 AM EST Kevin Silva MD LABORATORY Final Result Performing Organization Address [facility] de Phone Number [facility] (CLIA# [id number]) [address] [place] [address] * (ABNORMAL) CBC 5 PART DIFF (09/21/2000 12:11 PM EST) Only the most recent of2 resultswithin the time period is included. WHITE BLOOD COUNT 8.8 6.0 - 15.0 x1000/uL [facility] (CLIA# [id number]) RBC 4.34 3.90 - 5.30 mil/mL [facility] (CLIA# [id number]) Hemoglobin 11.2 9.5 - 14.1 g/dL [facility] (CLIA# [id number]) HCT (HEMATOCRIT) 31.5 30.0 - 40.0 % [facility] (CLIA# [id number]) MCV 73 72 - 82 fL [facility] (CLIA# [id number]) MCH 26 24 - 28 pg [facility] (CLIA# [id number]) MCHC 36(H) 30 - 34 g/dL [facility] (CLIA# [id number]) RDW 13.0 11.4 - 14.4 % [facility] (CLIA# [id number]) PLATELETS 338 150 - 540 x1000/uL [facility] (CLIA# [id number]) MPV 8.1 7.0 - 11.0 fL [facility] (CLIA# [id number]) NEUTROPHIL % 26 19 - 47 % [facility] (CLIA# [id number]) LYMPHOCYTE % 67 44 - 74 % [facility] (CLIA# [id number]) MONOCYTE % 4 4 - 13 % [facility] (CLIA# [id number]) EOSINOPHIL % 2 0 - 3 % [facility] (CLIA# [id number]) BASOPHIL % 1 0 - 2 % [facility] (CLIA# [id number]) NEUTROPHILS # 2.3 1.8 - 7.0 x1000/uL [facility] (CLIA# [id number]) LYMPHOCYTES # 5.9(H) 1.0 - 4.0 x1000/uL [facility] (CLIA# [id number]) MONOCYTES # 0.4 0.1 - 0.8 x1000/uL [facility] (CLIA# [id number]) EOSINOPHILS # 0.2 0 - 0.45 x1000/uL [facility] (CLIA# [id number]) BASOPHILS # 0.1 0 - 0.20 x1000/uL [facility] (CLIA# [id number]) MICROCYTIC CELLS + FC [facility] (CLIA# [id number]) 09/21/2000 12:1 1 PM EST 09/22/2000 10:55 AM EST Kevin Silva MD LABORATORY Final Result [facility] (CLIA# [id number]) [address] [place] [address] * (ABNORMAL) ARTERIAL BLOOD GAS (1999 10:28 AM EST) Only the most recent of3 resultswithin the time period is included. FIO2 .40 6CPAP [facility] (CLIA# [id number]) PH (ARTERIAL BLOOD) 7.22(L) 7.38 - 7.42 [facility] (CLIA# [id number]) PCO2 66(H) 38 - 42 mm/Hg [facility] (CLIA# [id number]) PO2 109(H) 85 - 95 mm/Hg [facility] (CLIA# [id number]) Comment:CRITICAL VALUE VILLAREAL D TO VAIBHAV GARCIA HCO3 26 23 - 28 mEq/L [facility] (CLIA# [id number]) CO2 Total 28 23 - 28 mEq/L [facility] (CLIA# [id number]) O2 SATURATION 97 95 - 97 % [facility] (CLIA# [id number]) 1999 10:2 8 AM EST 1999 2:21 PM EST Narrative [facility] (CLIA# [id number]) - 1999 10:28 AM EST Ordered by UNKNOWN PROVIDER us Unknown Provider [facility] LABORATORY Final Resul t [facility] (CLIA# [id number]) [address] [place] [address] * (ABNORMAL) ARTERIAL BLOOD GAS (1999 6:14 AM EST) FIO2 38.5% [facility] (CLIA# [id number]) PH (CAPILLARY BLOOD) 7.20(L) 7.38 - 7.42 [facility] (CLIA# [id number]) PCO2 67(H) 38 - 42 mm/Hg [facility] (CLIA# [id number]) Comment:CRITICAL VALUE VILLAREAL D TO JERED AT 0620 BY CRG PO2 59(H) 50 - 55 mm/Hg [facility] (CLIA# [id number]) HCO3 26 23 - 28 mEq/L [facility] (CLIA# [id number]) PCO2 28 23 - 28 mEq/L [facility] (CLIA# [id number]) O2 SATURATION 84 75 - 85 % [facility] (CLIA# [id number]) 1999 6:14 AM EST 1999 2:21 PM EST Narrative [facility] (CLIA# [id number]) - 1999 6:14 AM EST Ordered by UNKNOWN PROVIDER us Unknown Provider [facility] LABORATORY Final Resul t [facility] (CLIA# [id number]) [address] [place] [address] * (ABNORMAL) CBC WITH MANUAL DIFF (1999 5:50 AM EST) WHITE BLOOD COUNT 16.2 9.0 - 30.0 x1000/uL [facility] (CLIA# [id number]) Comment: WBC Correctd due to NRBC NRBC=6 RBC 6.06(H) 4.40 - 5.80 mil/mL [facility] (CLIA# [id number]) Hemoglobin 20.0 14.5 - 22.5 g/dL [facility] (CLIA# [id number]) HCT (HEMATOCRIT) 60.1 44.0 - 64.0 % [facility] (CLIA# [id number]) MCV 99 95 - 121 fL [facility] (CLIA# [id number]) MCH 33(L) 36 - 40 pg [facility] (CLIA# [id number]) MCHC 33(L) 34 - 38 g/dL [facility] (CLIA# [id number]) RDW 16.6(H) 11.4 - 14.4 % [facility] (CLIA# [id number]) PLATELETS 248 150 - 540 x1000/uL [facility] (CLIA# [id number]) Comment:Platelets clumped; n umber appears normal MPV 9.4 7.0 - 11.0 fL [facility] (CLIA# [id number]) NEUTROPHIL % 42 38 - 58 % [facility] (CLIA# [id number]) BAND % 16 11 - 19 % [facility] (CLIA# [id number]) Comment:Verified by repeat a nalysis of same specimen METAMYELOCYTE % 0 0- % [facility] (CLIA# [id number]) MYELOCYTE % 0 0- % [facility] (CLIA# [id number]) PROMYELOCYTE % 0 0- % [facility] (CLIA# [id number]) BLASTS # 0 0- % [facility] (CLIA# [id number]) LYMPHOCYTE % 25 19 - 29 % [facility] (CLIA# [id number]) ATYPICAL LYMPHOCYTE % 1 0 - 7 % [facility] (CLIA# [id number]) MONOCYTE % 12(H) 2 - 8 % [facility] (CLIA# [id number]) EOSINOPHIL % 3(H) 0 - 2 % [facility] (CLIA# [id number]) BASOPHIL % 1 0 - 2 % [facility] (CLIA# [id number]) NEUTROPHILS # 6.8 1.8 - 7.0 x1000/uL [facility] (CLIA# [id number]) BANDS # 2.6(H) 0 - 0.7 x1000/uL [facility] (CLIA# [id number]) LYMPHOCYTES # 4.1(H) 1.0 - 4.0 x1000/uL [facility] (CLIA# [id number]) ATYPICAL LYMPHOCYTES # 0.2 0 - 0.45 x1000/uL [facility] (CLIA# [id number]) MONOCYTES # 1.9(H) 0.1 - 0.8 x1000/uL [facility] (CLIA# [id number]) EOSINOPHILS # 0.5(H) 0 - 0.45 x1000/uL [facility] (CLIA# [id number]) BASOPHILS # 0.2 0 - 0.20 x1000/uL [facility] (CLIA# [id number]) Anisocytosis + [facility] (CLIA# [id number]) MACROCYTOSIS ++ [facility] (CLIA# [id number]) RBC MORPHOLOGY [facility] (CLIA# [id number]) Comment:NRBC=6 1999 5:50 AM EST 1999 8:30 AM EST Narrative [facility] (CLIA# [id number]) - 1999 5:50 AM EST CALL us Estiven Acharya MD LABORATORY Final Result Performing Organization Address City/[facility]/ZIP Co de Phone Number [facility] (CLIA# [id number]) [address] [place] [address] * CULTURE, BLOOD #1 (1999 5:25 AM EST) BLC1 Culture, Blood #1 [facility] (CLIA# [id number]) Comment: SOURCE: Blood ?? RIGHT RAD ART Result Comment(s): No Growth Result Comment(s): ?No Growth 1999 5:25 AM EST 03/07/2000 6:01 PM EDT Narrative [facility] (CLIA# [id number]) - 1999 5:25 AM EST Ordered by UNKNOWN PROVIDER us Unknown Provider [facility] LABORATORY Final Resul t Performing Organization Address [facility] Co de Phone Number [facility] (CLIA# [id number]) [address] [place] [address] * BLOOD TYPE (ABO&RH) (1999 3:49 AM EST) BLOOD GROUP ABO B NEG [facility] (CLIA# [id number]) 1999 3:49 AM EST 1999 1:27 AM EST Narrative [facility] (CLIA# [id number]) - 1999 3:49 AM EST MOM; GAVINO, [id number], O POS us Estiven Acharya MD LABORATORY Final Result Performing Organization Address City/[facility]/ZIP Co de Phone Number [facility] (CLIA# [id number]) [address] [place] [address] * DIRECT DONNIE (1999 3:49 AM EST) DONNIE DIRECT, POLYSPECIFIC SCREEN NEGATIVE [facility] (CLIA# [id number]) 1999 3:49 AM EST 1999 1:27 AM EST Narrative [facility] (CLIA# [id number]) - 1999 3:49 AM EST MOM; GAVINO, [id number], O POS Estiven Acharya MD LABORATORY Final Result [facility] (CLIA# [id number]) [address] [place] [address] Visit Diagnoses Diagnosis Start Date Routine or child health check 1999 Conjunctivitis Conjunctivitis, unspecified 01/09/2000 Routine or child health check 01/23/2000 Routine infant or child health check 03/25/2000 Routine or child health check 05/21/2000 Unspecified viral infection, in conditions classified elsewhere and of unspecified site 07/24/2000 Acute upper respiratory infection Acute upper respiratory infections of unspecified site 08/04/2000 Unspecified viral infection, in conditions classified elsewhere and of unspecified site 08/21/2000 Unspecified viral infection, in conditions classified elsewhere and of unspecified site 09/02/2000 Otitis media Unspecified otitis media 09/07/2000 Routine or child health check 09/21/2000 Routine infant or child health check 11/16/2000 Unspecified viral infection, in conditions classified elsewhere and of unspecified site 11/18/2000 Acute upper respiratory infection Acute upper respiratory infections of unspecified site 12/16/2000 Unspecified viral infection, in conditions classified elsewhere and of unspecified site 01/21/2001 Routine infant or child health check 02/18/2001 Routine infant or child health check 05/25/2001 Prophylactic vaccination against Streptococcus pneumoniae Need for prophylactic vaccination against streptococcus pneumoniae (pneumococcus) 05/25/2001 Need for vaccination for DTP + polio Need for prophylactic vaccination with aaxuhkgmsl-tawfxry-ymgsqkadj with poliomyelitis (DTP + polio) vaccine 05/25/2001 Acute upper respiratory infection Acute upper respiratory infections of unspecified site 08/17/2001 Unspecified viral infection, in conditions classified elsewhere and of unspecified site 09/09/2001 Routine or child health check 11/02/2001 Acute upper respiratory infection Acute upper respiratory infections of unspecified site 11/29/2001 Acute upper respiratory infection Acute upper respiratory infections of unspecified site 06/24/2002 Acute sinusitis Acute sinusitis, unspecified 09/19/2002 Routine infant or child health check 11/23/2002 Acute upper respiratory infection Acute upper respiratory infections of unspecified site 07/27/2003 Routine or child health check 11/30/2003 Need for prophylactic vaccination with tetanus-diphtheria (Td) 11/30/2003 NEED FOR PROPHYLACTIC VACCINATION AND INOCULATION AGAINST DISEASE Need for prophylactic vaccination and inoculation against other specified disease 11/30/2003 Otitis media Unspecified otitis media 12/29/2003 Acute upper respiratory infection Acute upper respiratory infections of unspecified site 07/26/2004 Examination of eyes and vision 12/04/2004 Examination of ears and hearing 12/04/2004 Examination of eyes and vision 12/18/2005 Examination of ears and hearing 12/18/2005 Vaginitis and vulvovaginitis Vaginitis and vulvovaginitis, unspecified 07/08/2006 URINARY TRACT INFECTION AFTER IMMOBILITY Urinary tract infection, site not specified 07/08/2006 Acute suppurative otitis media Acute suppurative otitis media without spontaneous rupture of eardrum 09/29/2006 Acute suppurative otitis media Acute suppurative otitis media without spontaneous rupture of eardrum 12/11/2006 ACUTE SUPPURATIVE OTITIS MEDIA WITHOUT SPONTANEOUS RUPTURE OF EARDRUM Acute suppurative otitis media without spontaneous rupture of eardrum 02/16/2007 ABDOMINAL PAIN Abdominal pain, unspecified site 10/29/2007 ABDOMINAL PAIN Abdominal pain, unspecified site 10/29/2007 Acute upper respiratory infections of unspecified site 12/07/2007 Acute otitis media Unspecified otitis media 11/25/2008 URI (upper respiratory infection) Acute upper respiratory infections of unspecified site 12/29/2008 Wrist injury Injury, other and unspecified, elbow, forearm, and wrist 08/02/2009 Cough 08/17/2009 Fever Fever, unspecified 08/17/2009 Streptococcal sore throat 08/17/2009 Acute pharyngitis 11/26/2009 URI (upper respiratory infection) Acute upper respiratory infections of unspecified site 11/26/2009 Screening for unspecified mental disorder and developmental handicap 02/01/2010 Body mass index, pediatric, greater than or equal to 95th percentile for age Body Mass Index, pediatric, greater than or equal to 95th percentile for age 402/01/2010 Need for prophylactic vaccination and inoculation against varicella 02/01/2010 Left knee pain Pain in joint, lower leg 06/17/2010 Left knee pain Pain in joint, lower leg 06/17/2010 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 06/17/2010 Otitis media Unspecified otitis media 08/27/2010 Cough 09/04/2010 Cough 09/04/2010 Dysuria 05/14/2011 Dysuria 05/14/2011 Pain in joint involving lower leg Pain in joint, lower leg 07/31/2011 Pain in joint involving lower leg Pain in joint, lower leg 07/31/2011 Painful urination Dysuria 09/24/2011 Painful urination Dysuria 09/24/2011 Vaginitis and vulvovaginitis Vaginitis and vulvovaginitis, unspecified 09/24/2011 Health check for child over 28 days old Routine or child health check 11/04/2011 Screening for mental disorder and developmental handicap Screening for unspecified mental disorder and developmental handicap 11/04/2011 BMI (body mass index), pediatric, 85% to less than 95% for age Body Mass Index, pediatric, 85th percentile to less than 95th percentile for age 111/04/2011 Need for meningococcus vaccine Need for other specified prophylactic vaccination against single bacterial disease 11/04/2011 Need for avimdlfsmj-wqrwovv-smcimaihs (Tdap) vaccine, adult/adolescent Need for prophylactic vaccination with combined lzknkvynnr-hefiiua-iawahstab (DTP) vaccine 11/04/2011 Need for immunization against influenza Need for prophylactic vaccination and inoculation against influenza 08/03/2012 Health check for child over 28 days old Routine or child health check 11/11/2012 Screening for mental disorder and developmental handicap Screening for unspecified mental disorder and developmental handicap 11/11/2012 BMI (body mass index), pediatric, 85% to less than 95% for age Body Mass Index, pediatric, 85th percentile to less than 95th percentile for age 111/11/2012 Need for vaccination against human papillomavirus Need for prophylactic vaccination and inoculation against other viral diseases 11/11/2012 Other examination of ears and hearing 11/11/2012 Need for vaccination against human papillomavirus Need for prophylactic vaccination and inoculation against other viral diseases 01/12/2013 Health check for child over 28 days old Routine infant or child health check 04/14/2014 Screening for mental disorder and developmental handicap Screening for unspecified mental disorder and developmental handicap 04/14/2014 BMI (body mass index), pediatric, 85% to less than 95% for age Body Mass Index, pediatric, 85th percentile to less than 95th percentile for age 604/14/2014 Need for vaccination for viral hepatitis Need for prophylactic vaccination and inoculation against viral hepatitis 04/14/2014 Need for prophylactic vaccination against human papillomavirus Need for prophylactic vaccination and inoculation against other viral diseases 04/14/2014 Plantar wart 04/14/2014 Verruca plantaris Plantar wart 05/25/2014 Verruca plantaris Plantar wart 06/22/2014 Bilateral knee pain Pain in joint, lower leg 04/26/2015 Health check for child over 28 days old Routine infant or child health check 04/26/2015 Screening for mental disorder and developmental handicap Screening for unspecified mental disorder and developmental handicap 04/26/2015 Childhood obesity, BMI 95-100 percentile Obesity, unspecified 04/26/2015 Need for vaccination for viral hepatitis Need for prophylactic vaccination and inoculation against viral hepatitis 04/26/2015 Knee pain, unspecified laterality 04/26/2015 Bilateral knee pain Pain in joint, lower leg 04/30/2015 Patellofemoral syndrome, bilateral Pain in joint, lower leg 05/02/2015 Bilateral ankle pain Pain in joint, ankle and foot 05/02/2015 Patellofemoral stress syndrome of both knees 02/12/2016 Dysuria 09/21/2019 Acute vaginitis Vaginitis and vulvovaginitis, unspecified 09/21/2019 Acute pansinusitis, recurrence not specified 05/20/2021 Cough 05/20/2021 Cough 10/12/2021 RLQ abdominal pain Abdominal pain, right lower quadrant 04/05/2022 RLQ abdominal pain Abdominal pain, right lower quadrant 04/05/2022 Right knee pain, unspecified chronicity 05/21/2022 Right knee pain, unspecified chronicity 05/22/2022 It band syndrome, right 05/22/2022 Pes anserinus bursitis of right knee Pes anserinus tendinitis or bursitis 05/22/2022 Chronic pain of right knee 05/22/2022 Injury of left shoulder, initial encounter 12/03/2022 Work related injury Injury, other and unspecified, unspecified site 12/03/2022 Injury of left shoulder, initial encounter 12/03/2022 Work related injury Injury, other and unspecified, unspecified site 12/03/2022 Injury of left shoulder, initial encounter 12/05/2022 Weakness of shoulder Other symptoms referable to shoulder joint 12/05/2022 Injury of left shoulder, subsequent encounter 12/29/2022 Weakness of shoulder Other symptoms referable to shoulder joint 12/29/2022 Injury of left shoulder, subsequent encounter 02/05/2023 Anterior to posterior tear of superior glenoid labrum of left shoulder 02/05/2023 Injury of left shoulder, subsequent encounter 02/17/2023 Anterior to posterior tear of superior glenoid labrum of left shoulder 02/17/2023 Injury of left shoulder, subsequent encounter 03/10/2023 Anterior to posterior tear of superior glenoid labrum of left shoulder 03/10/2023 Injury of left shoulder, subsequent encounter 04/07/2023 Anterior to posterior tear of superior glenoid labrum of left shoulder 04/07/2023 Abdominal pain, unspecified abdominal location 07/29/2023 RLQ abdominal pain Abdominal pain, right lower quadrant 07/29/2023 Nausea Nausea alone 07/29/2023 Nausea and vomiting, unspecified vomiting type 07/29/2023 Care Teams Finishing Operator Relationship Specialty Start Date End Date Mala Murguia MD [address] [place] [id number] PCP - General Internal Medicine 10/12/21
--- OUTSIDE RECORDS SUMMARY | 2024-11-29 19:35 | XMS_ITS | Encounter Summary ---
Author Organization [facility] Address [address] [place] [address] Care Team Providers Care Band Tacker Name Role Phone Mala Murguia MD Primary Care Provider [phone] Encounter Details Date Type Department Care Team (Late st Contact Info) Description 01/19/2024 [employer] Message [facility] [address] [place] [phone] Mychart, Generic Provider [address] [place] [phone] Nutrition Information Social History Tobacco Use Types Packs/Day Years Used Date Smoking Tobacco: Never Smokeless Tobacco: Never Comments:: Alcohol Use Standard Drinks/Week Comments Never 0 (1 standard drink = 0.6 oz pur e alcohol) Transportation Answer Date Recorded Please charla the areas for wh ich the patient would like information or assistance: None Apply 10/24/2023 Lack of Transportation (Medical) Not on file 10/24/2023 Housing Stability Answer Date Recorded Please charla the areas for wh ich the patient would like information or assistance: None Apply 10/24/2023 Unable to Pay for Housing in the Last Year Not o n file 10/24/2023 Last EPDS Total Score Not on file 10/24/2023 Unstable Housing in the Last Year Not on file 10/24/2023 Comments No Sex and Gender Information Value Date Recorded Sex Assigned at Female 01/30/2022 4:18 PM EDT Legal Sex Female 9:37 AM EDT Gender Identity Female 01/30/2022 4:18 PM EDT Sexual Orientation Other 04/07/2022 3: 54 PM EDT Sexual Orientation Straight 04/07/2022 3: 54 PM EDT documented as of this encounter Plan of Treatment Upcoming Encounters Date Type Department Care Team (Late st Contact Info) Description 12/29/2024 9:30 AM EST Procedure visit [facility] [address] [place] [phone] 12/29/2024 10:15 AM EST Follow-Up [facility] Upper Extremity [address] [address] Conner Linton MD [address] [place] [phone] 01/18/2025 9:20 AM EDT Follow-Up [facility] Internal Medicine [address] [place] [phone] Mala Murguia MD [address] [place] [phone] 11/21/2025 10:00 AM EST Office Visit [facility] [address] [place] [phone] Mala Murguia MD [address] [place] [phone] documented as of this encounter Visit Diagnoses Not on filedocumented in this encounter Care Teams Band Tacker Relationship Specialty Start Date End Date Mala Murguia MD [address] [place] [phone] PCP - General Internal Medicine 09/17/21 documented as of this encounter
--- OUTSIDE RECORDS SUMMARY | 2024-11-29 19:35 | XMS_ITS | Encounter Summary ---
Author Organization [facility] Address [address] [place] [id number] Care Team Providers Care Mft Name Role Phone Mala Murguia MD Primary Care Provider [phone] Reason for Visit * Reason Comments Labs/orders Encounter Details Date Type Department Care Team ([facility] st Contact Info) Description 12/26/2022 Telephone CALL CENTER [facility] [address] [place] [phone] Debbie Blevins, LUCIANA [address] [facility] [address] [place] [address] Labs/orders Social History Tobacco Use Types Packs/Day Years [...] encounter Miscellaneous Notes * Telephone Encounter - Brad Carrington LVN LPN - 12/29/2022 2:18 PM EST Patient needs to go to [facility] as this is an arthrogram and cannot be done within [facility], faxed order to [facility] * Telephone Encounter - Rebecca Cabrera - 12/29/2022 8:27 AM EST Images from the original note were not included. WC Authorized this service, ok to schedule with [facility] just need a new order placed. Please forward back to me so I can update referral and notes. * Telephone Encounter - Leodan Smith - 12/26/2022 3:39 PM EST Pt is requesting the MRI order to be redirected to [facility]. The workers comp rep is faxing the authorization to [phone] today. documented in this encounter Plan of Treatment Not on file documented as of this encounter Visit Diagnoses Not on filedocumented in this encounter Care Teams Mft Relationship Specialty Start Date End Date Mala Murguia MD [address] [place] [phone] PCP - General Internal Medicine 10/12/21 documented as of this encounter
--- OUTSIDE RECORDS SUMMARY | 2024-11-29 19:35 | XMS_ITS | Encounter Summary ---
Author Organization [facility] Address [address] [place] [address] Care Team Providers Care Machine Shop Worker Name Role Phone Mala Murguia MD Primary Care Provider [phone] Encounter Details Date Type Department Care Team (Late st Contact Info) Description 11/15/2024 [employer] Message [facility] Internal Medicine [address] [place] [phone] Mychart, Generic Provider [address], [place] [id number] schedule 1-2 month follow up re: anxiety Social History Tobacco Use Types Packs/Day Years Used Date Smoking Tobacco: Never Smokeless Tobacco: Never Comments:: Alcohol Use Standard Drinks/Week Comments Never 0 (1 standard drink = 0.6 oz pur e alcohol) [facility] Utilities Answer Date Recorded In the past 12 months has th e electric, gas, oil, or water company threatened to shut off services in your home? No 2024 Hunger Vital Sign Answer Date Recorded Within the past 12 months, y ou worried that your food would run out before you got the money to buy more. Never true 11/14/19 25 Within the past 12 months, t he food you bought just didn't last and you didn't have money to get more. Never true 2024 Transportation Answer Date Recorded In the past 12 months, has l ack of reliable transportation kept you from medical appointments, meetings, work or from getting things needed for daily living? No 2024 Housing Answer Date Recorded Housing Risk Low 2 2024 Housing Risk Medium Not on file 2024 Housing Risk High Not on file 2024 What is your living situation today? [facility] 2024 Comments No Sex and Gender Information Value [...] Description 12/29/2024 9:30 AM EST Procedure visit [facility] [address] [place] [phone] 12/29/2024 10:15 AM EST Follow-Up [facility] Hand [facility] Upper Extremity [address] [address] Conner Linton MD [address] [place] [phone] 01/18/2025 9:20 AM EDT Follow-Up [facility] Internal Medicine [address] [place] [phone] Mala Murguia MD [address] [place] [phone] 11/21/2025 10:00 AM EST Office Visit [facility] Internal Medicine [address] [place] [phone] Mala Murguia MD [address] [place] [phone] documented as of this encounter Visit Diagnoses Not on filedocumented in this encounter Care Teams Machine Shop Worker Relationship Specialty Start Date End Date Mala Murguia MD [address] [place] [phone] PCP - General Internal Medicine 09/17/21 documented as of this encounter
--- OUTSIDE RECORDS SUMMARY | 2024-11-29 19:35 | XMS_ITS | Referral Summary ---
Author Organization [facility] Address [address] [place] [address] Care Team Providers Care A/C Tech Name Role Phone Mala Murguia MD Primary Care Provider [phone] Encounters Date Type Department Care Team Description 11/15/2024 myChart Message [facility] [address] [place] [phone] Mychart, Generic Provider schedule 1-2 month follow up re: anxiety 11/15/2024 11:00 AM EST Office Visit [facility] [address] [place] [phone] Yen Morales MD Routine general medical examination at a health care facility (Primary Dx); Hypothyroidism, unspecified type; Mixed hyperlipidemia; Lactose intolerance; Nonalcoholic fatty liver disease; Elevated fasting glucose; Acquired hypothyroidism; Anxiety; Diarrhea, unspecified type; Gastroesophageal reflux disease without esophagitis; Epigastric pain 11/09/2024 9:15 AM EST Evaluation [facility] [address] [place] [phone] Mane Marvin OT De Quervain's tenosynovitis, right (Primary Dx); Carpal tunnel syndrome of right wrist; Deficit in activities of daily living (ADL) 10/03/2024 11:45 AM EST Office Visit [facility] [address] [place] [phone] Demasi, Mane, OT De Quervain's tenosynovitis, right (Primary Dx); Carpal tunnel syndrome of right wrist; Deficit in activities of daily living (ADL) 10/03/2024 10:30 AM EST Office Visit [facility] [address] [place] [address] Conner Linton MD Right hand pain (Primary Dx); De Quervain's tenosynovitis; Lateral epicondylitis of right elbow; Bilateral carpal tunnel syndrome 09/07/2024 11:20 AM EST Follow-Up [facility] [address] [place] [phone] Mala Murguia MD De Quervain's tenosynovitis, right (Primary Dx); Diarrhea, unspecified type; Gastroesophageal reflux disease without esophagitis from Last 3 Months Allergies Active Allergy Reactions Criticality Noted Date Comments Beef Containing Products Diarrhea,Nausea 01/19/2024 Beef Derived (Bovine) Unknown 02/01/2024 Cigarette Smoke Unknown 02/01/2024 Coconut Cough,Sore throat Medium 11/15/2024 Mouth/lip numbness Gluten Abdominal Pain,Constipation,Sofy rrhea,Fecal Incontinence,Flatulen ce,Heartburn,Indigest ion,Other (see comments),Swelling High 12/03/2022 Lactose Diarrhea 04/14/2014 Peanut Itching,Nausea,Rash, R espiratory Distress High 12/03/2022 Sesame Seed Cough,Itching,Nausea , Respiratory Distress High 02/01/2024 Tree Nut Itching,Nausea,Rash, R espiratory Distress High 02/01/2024 Tree Nuts Swelling High 04/24/2020 Pecans. Other nuts have not bothered her. Sugared with unknown Wheat Nausea,Other (see comments) 02/01/2024 Medications cholecalciferol (cholecalciferol) 1,000 unit tablet Take 1 tablet (1,000 Units total) by mouth daily. 30 tablet 04/23/20 Active Additional Information Patient not taking.Reported on 11/15/2024 levonorgestreL-eth inyl estrad (SEASONALE) 0.15 mg-30 mcg (91) per tablet Take 1 tablet by mouth once a day. 91 tablet 3 06/13/20 21 Active EPINEPHrine (EPIPEN) 0.3 mg/0.3 mL injection syringe Inject 1 Syringe (0.3 mg total) into the outer thigh muscle as directed as needed for anaphylaxis (anaphylactic pre-symtpoms). 0.3 mL 2 06/13/20 Active calcium carbonate (CALCIUM 600 ORAL) Take by mouth. Active dicyclomine (BENTYL) 10 mg capsuleIndications :Diarrhea, unspecified type,Irritable bowel syndrome, unspecified type TAKE 1 CAPSULE (10 MG TOTAL) BY MOUTH 3 TIMES A DAY NEEDED (IBS). 270 capsule 1 11/12/19 24 Active Additional Information Patient not taking.Reported on 11/15/2024 naproxen (NAPROSYN) 500 mg tabletIndications: Nonintractable headache, unspecified chronicity pattern, unspecified headache type Take 1 tablet (500 mg total) by mouth 2 times a day with meals. 60 tablet 12/11/19 24 Active Additional Information Patient not taking.Reported on 11/15/2024 levothyroxine (SYNTHROID, LEVOTHROID) 25 mcg tabletIndications: Acquired hypothyroidism Take 1 tablet (25 mcg total) by mouth once a day. 30 tablet 2 11/15/19 25 Active hydrOXYzine HCL (ATARAX) 25 mg tabletIndications: Anxiety Take 1 tablet (25 mg total) by mouth daily as needed for itching or anxiety. 90 tablet 11/15/19 25 Active ondansetron (ZOFRAN ODT) 4 mg disintegrating tabletIndications: Diarrhea, unspecified type,Gastroesophag eal reflux disease without esophagitis Dissolve 1 tablet (4 mg total) in the mouth every 8 hours as needed for nausea or vomiting (nausea from gluten). 15 tablet 11/15/19 25 Active Active Problems Problem Noted Date Diagnosed Date Bipolar 1 disorder 05/23/2022 Hypothyroidism 05/23/2022 Family history of hemochromatosis 02/08/2018 Overview (05/23/2022): Pt has normal ferritin level On oral contraceptive pills for non-contraception indication 02/08/2018 Lactose intolerance 09/14/2017 Nonalcoholic fatty liver disease 11/06/2016 Resolved Problems Problem Noted Date Diagnosed Date Resolved Date Endometriosis 06/17/2022 01/11/2024 History of COVID-19 06/14/2021 10/11/20 21 Racing heart beat 06/14/2021 10/14/2021 Persistent cough 06/14/2021 10/14/2021 Chest pain in adult 06/14/2021 10/14/20 21 Surveillance of contraceptive pill 06/14/2021 10/14/2021 Sleep concern 06/14/2021 10/11/2021 Annual physical exam 06/13/2021 021 Oral allergy syndrome 06/13/20212020 History of oral allergy syndrome 06/13/2021 07/29/2023 Muscle spasm of calf 03/21/2021 Assessment & Plan (03/21/2021 12:08 PM EDT): 3 weeks of bilateral gastrocnemius soreness with [...] to ED with concerns Left hand paresthesia 01/06/20212020 Assessment & Plan (01/06/2021 6:56 PM EDT): Mala Damian is a 20 y.o. female, history of [...] a new sling. Complex care coordination 04/24/2020 Health care maintenance 04/23/202009/25 Headache due to viral infection 04/02/2018 04/23/2020 Healthcare maintenance 02/08/201810/11 Encounter for long-term curr ent use of medication 02/08/2018 10/11/2021 Acne vulgaris 02/08/2018 04/23/2020 Abnormal weight gain 09/15/2017 022 Left knee pain 07/15/2017 02/08/2018 Acute pain of left foot 07/15/201703/27 Low back pain 07/15/2017 02/08/2018 Pain in both knees 07/15/2017 1 Dietary counseling 04/02/2017 1 Health counseling 04/02/2017 10/11/2021 RUQ abdominal tenderness 11/06/2016 Enlarged liver 11/06/2016 05/23/2022 Abdominal tenderness, RLQ (r ight lower quadrant) 11/06/2016 04/23/2020 Sprain of right wrist, subsequent encounter 04/02/2016 09/15/2017 Pain and swelling of right wrist 04/01/2016 02/08/2018 Menorrhagia 01/07/2016 02/08/2018 Hypermobility arthralgia 01/07/201601/2023 Dysmenorrhea 01/07/2016 04/23/2020 Overweight 01/07/2016 10/11/2021 Chronic constipation 01/07/2016 020 Immunizations Name Administration Dates Next Due Covid-19 Monovalent Vaccine, Moderna, mRNA, PF 12/06/2021,04/02/2021,03/06/2021,03/05 Diphtheria, Tetanus Toxoids and Acellular Pertussis Vaccine 11/30/2003,05/25/2001,05/21/2000,03/25,01/23/2000 Diphtheria, Tetanus Toxoids and Acellular Pertussis Vaccine, 5 Pertussis Antigens 11/30/2003,05/25/2001,05/21/2000,03/25,01/23/2000 HPV, Unspecified Formulation 04/14/2014,01/13/20 13,11/11/2012 Haemophilus Influenzae Type B Vaccine, PRP-OMP Conjugate 02/18/2001,05/21/2000,03/25/2000,01/22 Haemophilus Influenzae Type B Vaccine, PRP-T Conjugate 02/18/2001,05/21/2000,03/25/2000,01/22 Hep A, Live Attenuated-IM 04/26/2015,04/14/2014 Hepatitis A Vaccine, Pediatric/Adolescent Dosage, 2 Dose Schedule 04/26/2015,04/14/2014 Hepatitis B Vaccine, Pediatr ic or Pediatric/Adolescent Dosage 09/21/2000,01/23/2000,1999 Human Papilloma Virus Vaccin e, Quadrivalent 04/14/2014,01/12/2013,11/11/2012 INFLUENZA, SPLIT VIRUS, TRIVALENT, PF 07/15/2017 ,08/03/2012 Influenza, Injectable, Madin Chyna Canine Kidney, Preservative Free, Quadrivalent 07/15/2022 Influenza, Injectable, Quadr ivalent, Contains Preservative 10/14/2021 Influenza, Trivalent, MDV, Injectable 08/03/2012 Influenza, Unspecified 08/03/2012 Measles, Mumps, and Rubella Vaccine 11/30/2003,0 02/18/2001 Meningococcal B Vaccine, Rec ombinant, OMV, Adjuvanted 04/11/2019,02/08/2018 Meningococcal Polysaccharide (Groups A, C, Y and W-135) Diphtheria Toxoid Conjugate Vaccine (MCV4P) 01/15/2017,11/04/2011 Meningococcal Vaccine of Unk nown Formulation and Unknown Serogroups 01/15/2017,11/04/2011 Pneumococcal Conjugate Vacci ne, 7 Valent 05/25/2001,02/18/2001,09/21/2000,05/21 Pneumococcal Polysaccharide Vaccine, 23 Valent 05/25/2001,02/18/2001,09/21/2000,05/21 Poliovirus Vaccine, Inactivated 11/30/19 04,11/27/2003,05/25/2001,05/25,03/25/2000,01/23/2000 Td(Adult) Unspecified Formulation 11/04/2011 Tetanus Toxoid, Reduced Diph theria Toxoid, and Acellular Pertussis Vaccine, Adsorbed 11/04/2011 Tetanus and Diphtheria Toxoi ds, Adsorbed, Preservative Free, for Adult Use (5 Lf of Tetanus Toxoid and 2 Lf of Diphtheria Toxoid) 10/14/2021 Varicella Virus Vaccine 02/01/2010,02/18/2001 Social History Tobacco Use Types Packs/Day Years Used Date Smoking Tobacco: Never Smokeless Tobacco: Never Comments:: Alcohol Use Standard Drinks/Week Comments Never 0 (1 standard drink = 0.6 oz pur e alcohol) [facility] Utilities Answer Date Recorded In the past 12 months has e electric, gas, oil, or water [employer] threatened to shut off services in your [...] Orientation Straight 04/07/2022 3: 54 PM EDT Last Filed Vital Signs Vital Sign Reading Time Taken Comments Blood Pressure 140/82 11/15/2024 11:51 AM EST Pulse 83 11/15/2024 10:56 AM EST Temperature 36.4 ??C (97.6 ??F) 11/15/2024 10:[address] Respiratory Rate 18 02/01/2024 2:22 PM EDT Oxygen Saturation 97% 11/15/2024 10:56 AM EST Inhaled Oxygen Concentration - - Weight 139.9 kg (308 lb 8 oz) 11/15/2024 10:56 A M EST Height 170.7 cm (5' 7.2 ) 11/15/2024 10:56 AM ES T Body Mass Index 48.03 11/15/2024 10:56 AM EST Plan of Treatment Upcoming Encounters Date Type Department Care Team (Late st Contact Info) Description 12/29/2024 9:30 AM EST Procedure visit [facility] [address] [place] [phone] 12/29/2024 10:15 AM EST Follow-Up [facility] [address] [place] [phone] Conner Linton MD [address] [place] [phone] 01/18/2025 9:20 AM EDT Follow-Up [facility] [address] [place] [phone] Mala Murguia MD [address] [place] [phone] 11/21/2025 10:00 AM EST Office Visit [facility] [address] [place] [phone] Mala Murguia MD [address] [place] [phone] Procedures * Due to [place] state law, this organization might not be sharing negative HIV tests. Procedure Name Priority Date/Time Associated Diagnosis Comments LDL CHOLESTEROL, DIRECT Routine 11/15/2024 12:15 PM EST HEMOGLOBIN A1C Routine 11/15/2024 12:15 PM EST Routine general medical examination at a health care facility Elevated fasting glucose TSH REFLEX FREE T4 Routine 11/15/2024 12 :15 PM EST Routine general medical examination at a health care facility Hypothyroidism, unspecified type Mixed hyperlipidemia Lactose intolerance Nonalcoholic fatty liver disease LIPID PANEL W/REFLEX TO DIRECT LDL Routine 11/15/2024 12:15 PM EST Routine general medical examination at a health care facility Hypothyroidism, unspecified type Mixed hyperlipidemia Lactose intolerance Nonalcoholic fatty liver disease COMPREHENSIVE METABOLIC PANEL Routine 11/15/2024 12:15 PM EST Routine general medical examination at a health care facility Hypothyroidism, unspecified type Mixed hyperlipidemia Lactose intolerance Nonalcoholic fatty liver disease CBC Routine 11/15/2024 12:15 PM EST Routine general medical examination at a health care facility Hypothyroidism, unspecified type Mixed hyperlipidemia Lactose intolerance Nonalcoholic fatty liver disease XR WRIST 3+ VW RIGHT Routine 10/03/2024 11:16 AM EST Right hand pain XR HAND 3+ VW RIGHT Routine 10/03/2024 1 0:49 AM EST Right hand pain from Last 3 Months Results * Due to [place] state law, this organization might not be sharing negative HIV tests. * TSH Reflex Free T4 (11/15/2024 12:15 PM EST) TSH 2.08 mIU/L 11/15/2024 11:39 PM EST [employer] Comment: ?Reference Range ?> or = 20 Years ??0.40-4.50 ? Ranges ?First trimester ?0.26-2.66 ?Second trimester ?? 0.55-2.73 ?Third trimester ?0.43-2.91 Blood Structure of peripheral vein / Unknown 11/15/2024 12:15 PM EST 11/15/2024 10:23 PM EST Narrative [facility] - 11/16/2024 7:23 AM EST FASTING:NO MULTIPLE TESTING PRIORITIES; ROUTINE TESTING TO FOLLOW. us Mala Murguia MD LAB BLOOD ORDERABLES Final Resul t [facility] [address] [facility] [address], [place] [phone], [employer] [facility] [address] [place] [address] * (ABNORMAL) Lipid Panel w/Reflex to Direct LDL (11/15/2024 12:15 PM EST) Cholesterol, Total 157 <200 mg/dL 11/16/2024 12:17 AM EST [employer] HDL Cholesterol 37(L) > OR = 50 mg/dL 11/16/2024 12:17 AM EST [employer] Triglycerides 401(H) <150 mg/dL 11/16/2024 12:17 AM [employer] Comment: If a non-fasting specimen was collected, consider repeat triglyceride testing on a fasting specimen if clinically indicated. aMyra et al. J. of Clin. Lipidol. 2015;9:129-169. LDL-Cholesterol See Comments mg/dL (calc) 11/16/2024 12:17 AM EST [employer] Comment: LDL cholesterol not calculated. Triglyceride levels greater than 400 mg/dL invalidate calculated LDL results. Reference range: <100 Desirable range <100 mg/dL for primary prevention; ?? <70 mg/dL for patients with CHD or diabetic patients with > or = 2 CHD risk factors. LDL-C is now calculated using the Korin calculation, which is a validated novel method providing better accuracy than the Friedewald equation in the estimation of LDL-C. Stefano FRANK et al. MARJORIE. 2013;310(19): 5164-6552 (http://education.OpSource/faq/QVM728) Chol/HDLC Ratio 4.2 <5.0 (calc) 11/16/2024 12:17 AM EST [employer] [facility] Non HDL Cholesterol 120 <130 mg/dL (calc) 11/16/2024 12:17 AM EST [employer] Comment: For patients with diabetes plus 1 major ASCVD risk factor, treating to a non-HDL-C goal of <100 mg/dL (LDL-C of <70 mg/dL) is considered a therapeutic option. Blood Structure of peripheral vein / Unknown 11/15/2024 12:15 PM EST 11/15/2024 10:23 PM EST Narrative [facility] - 11/16/2024 7:23 AM EST FASTING:NO MULTIPLE TESTING PRIORITIES; ROUTINE TESTING TO FOLLOW. us Mala Murguia MD LAB BLOOD ORDERABLES Final Resul t [facility] [address] [facility] [address], [place] [address], [employer] [facility] [address] [place] [address] * CBC (11/15/2024 12:15 PM EST) White Blood Cell Count 7.9 3.8 - 10.8 Thousand/ uL 11/16/2024 12:51 AM EST [employer] [facility] Red Blood Cell Count 5.08 3.80 - 5.10 Million/u L 11/16/2024 12:51 AM EST [employer] [facility] Hemoglobin 13.9 11.7 - 15.5 g/dL 11/16/2024 12:51 AM EST [employer] [facility] Hematocrit 41.5 35.0 - 45.0 % 11/16/2024 12:51 AM EST [employer] [facility] MCV 81.7 80.0 - 100.0 fL 11/16/2024 12:51 AM EST [employer] MCH 27.4 27.0 - 33.0 pg 11/16/2024 12:51 AM EST [employer] MCHC 33.5 32.0 - 36.0 g/dL 11/16/2024 12:51 AM EST [employer] Comment: For adults, a slight decrease in the calculated MCHC value (in the range of 30 to 32 g/dL) is most likely not clinically significant; however, it should be interpreted with caution in correlation with other red cell parameters and the patient's clinical condition. RDW 13.2 11.0 - 15.0 % 11/16/2024 12:51 AM EST [employer] Platelet Count 289 140 - 400 Thousand/ uL 11/16/2024 12:51 AM EST [employer] MPV 11.8 7.5 - 12.5 fL 11/16/2024 12:51 AM EST [employer] Blood Structure of peripheral vein / Unknown 11/15/2024 12:15 PM EST 11/15/2024 10:06 PM EST Narrative [facility] - 11/16/2024 7:23 AM EST FASTING:NO MULTIPLE TESTING PRIORITIES; ROUTINE TESTING TO FOLLOW. us Mala Murguia MD LAB BLOOD ORDERABLES Final Resul t [facility] [address] [facility] [address], [place] [address], [employer] [facility] [address] [place] [address] * LDL Cholesterol, Direct (11/15/2024 12:15 PM EST) Direct LDL 80 <100 mg/dL 11/16/2024 2:35 AM EST [employer] Comment: Desirable range <100 mg/dL for primary prevention; ?? <70 mg/dL for patients with CHD or diabetic patients with > or = 2 CHD risk factors. 11/15/2024 12:1 5 PM EST 11/15/2024 12:16 PM EST Narrative [facility] - 11/16/2024 7:23 AM EST FASTING:NO MULTIPLE TESTING PRIORITIES; ROUTINE TESTING TO FOLLOW. Mala Murguia MD LAB BLOOD ORDERABLES Final Resul t [facility] [address], [place] [address], [place] [phone] [employer] [facility] [address] [place] [address] * (ABNORMAL) Hemoglobin A1c (11/15/2024 12:15 PM EST) Hemoglobin A1C 5.9(H) <5.7 % of total Hgb 11/16/2024 7:19 AM EST [employer] Comment: For someone without known diabetes, a hemoglobin A1c value between 5.7% and 6.4% is consistent with prediabetes and should be confirmed with a follow-up test. For someone with known diabetes, a value <7% indicates that their diabetes is well controlled. A1c targets should be individualized based on duration of diabetes, age, comorbid conditions, and other considerations. This assay result is consistent with an increased risk of diabetes. Currently, no consensus exists regarding use of hemoglobin A1c for diagnosis of diabetes for children. eAG (MG/DL) 123 mg/dL 11/16/2024 7:19 AM EST [employer] eAG (MMOL/L) 6.8 mmol/L 11/16/2024 7:19 AM EST [employer] Blood Structure of peripheral vein / Unknown 11/15/2024 12:15 PM EST 11/15/2024 10:06 PM EST Narrative [facility] - 11/16/2024 7:23 AM EST FASTING:NO MULTIPLE TESTING PRIORITIES; ROUTINE TESTING TO FOLLOW. Mala Murguia MD LAB BLOOD ORDERABLES Final Resul t [facility] [address], [place] [address], [place] [phone] [employer] [facility] [address] [place] [address] * Comprehensive Metabolic Panel (11/15/2024 12:15 PM EST) Glucose 90 65 - 139 mg/dL 11/16/2024 12:17 AM [employer] [facility] Comment: ? Non-fasting reference interval BUN 11 7 - 25 mg/dL 11/16/2024 12:17 AM [employer] Creatinine 0.60 0.50 - 0.96 mg/dL 11/16/2024 12:17 AM [employer] eGFR 128 > OR = 60 mL/min/1. 73m2 11/16/2024 12:17 AM [facility] Bun/Creatinine Ratio SEE NOTE: - (calc) 11/16/2024 12:17 AM [employer] [facility] Comment: ?? Not Reported: BUN and Creatinine are within ?? reference range. ? Sodium 140 135 - 146 mmol/L 11/16/2024 12:17 AM [facility] Potassium 4.3 3.5 - 5.3 mmol/L 11/16/2024 12:17 AM [facility] Chloride 105 98 - 110 mmol/L 11/16/2024 12:17 AM [facility] Carbon Dioxide 27 20 - 32 mmol/L 11/16/2024 12:17 AM [facility] Calcium 9.5 8.6 - 10.2 mg/dL 11/16/2024 12:17 AM [facility] Protein, Total 6.4 6.1 - 8.1 g/dL 11/16/2024 12:17 AM [facility] Albumin 4.0 3.6 - 5.1 g/dL 11/16/2024 12:17 AM [facility] Globulin 2.4 1.9 - 3.7 g/dL (calc) 11/16/2024 12:17 AM [facility] Albumin/Globuli n Ratio 1.7 1.0 - 2.5 (calc) 11/16/2024 12:17 AM [facility] Bilirubin, Total 0.2 0.2 - 1.2 mg/dL 11/16/2024 12:17 AM [facility] Alkaline Phosphatase 64 31 - 125 U/L 11/16/2024 12:17 AM [facility] AST 13 10 - 30 U/L 11/16/2024 12:17 AM [facility] ALT 13 6 - 29 U/L 11/16/2024 12:17 AM EST [employer] Blood Structure of peripheral vein / Unknown 11/15/2024 12:15 PM EST 11/15/2024 10:23 PM EST Narrative [facility] - 11/16/2024 7:23 AM EST FASTING:NO MULTIPLE TESTING PRIORITIES; ROUTINE TESTING TO FOLLOW. us Mala Mugruia MD LAB BLOOD ORDERABLES Final Resul t [facility] [address] [facility] [address], [place] [address], [place] [phone] [employer] [facility] [address] [place] [address] * X-Ray Wrist Right 3+ Views (10/03/2024 11:16 AM EST) Anatomical Region Laterality Modality Upper Extremities, Wrist Right Compute d Radiography 10/03/2024 7:45 PM EST Impressions 10/03/2024 7:47 PM EST FINDINGS/IMPRESSION: No radiographic evidence of acute fracture or dislocation. ??The joint spaces are preserved. ??No erosions. ??Carpal alignment is maintained. If this radiology report contains a blank impression section, it is an incomplete radiology report. ??Please contact the interpreting radiologist or applicable radiology division as soon as possible to obtain the completed interpretation. ? Workstation ID: [id number] Narrative 10/03/2024 7:47 PM EST COMPARISON: Radiograph of the right wrist from 04/23/2016. Resulting Agency Comment [id number] Procedure Note Beau Lundberg MD - 10/03/2024 COMPARISON: Radiograph of the right wrist from 04/23/2016. IMPRESSION: FINDINGS/IMPRESSION: No radiographic evidence of acute fracture or dislocation. The jointspaces are preserved. No erosions. Carpal alignment is maintained. If this radiology report contains a blank impression section, it is anincomplete radiology report. Please contact the interpreting radiologistor applicable radiology division as soon as possible to obtain thecompleted interpretation. Workstation ID: [id number] Conner Linton MD IMG XR PROCEDURES Final Result * X-Ray Hand Right 3+ Views (10/03/2024 10:49 AM EST) Anatomical Region Laterality Modality Upper Extremities, Hand Right Computed Radiography 10/03/2024 7:45 PM EST Impressions 10/03/2024 7:47 PM EST FINDINGS/IMPRESSION: No radiographic evidence of acute fracture or dislocation. ??The joint spaces are preserved. ??No erosions. ??Carpal alignment is maintained. If this radiology report contains a blank impression section, it is an incomplete radiology report. ??Please contact the interpreting radiologist or applicable radiology division as soon as possible to obtain the completed interpretation. ? Workstation ID: [id number] Narrative 10/03/2024 7:47 PM EST COMPARISON: Radiograph of the right wrist from 04/23/2016. Resulting Agency Comment [id number] Procedure Note Beau Lundberg MD - 10/03/2024 COMPARISON: Radiograph of the right wrist from 04/23/2016. IMPRESSION: FINDINGS/IMPRESSION: No radiographic evidence of acute fracture or dislocation. The jointspaces are preserved. No erosions. Carpal alignment is maintained. If this radiology report contains a blank impression section, it is anincomplete radiology report. Please contact the interpreting radiologistor applicable radiology division as soon as possible to obtain thecompleted interpretation. 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
--- OUTSIDE RECORDS SUMMARY | 2024-11-29 19:35 | XMS_ITS | Encounter Summary ---
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 EST) TSH 2.08 mIU/L 11/15/2024 11:39 PM EST [employer] Comment: ?Reference Range ?> or = 20 [...] ORDERABLES Final Resul t [facility] [address] [facility] 3rd Floor, [place] [address], [place] [phone] [employer] [facility] [address] [place] [address] * (ABNORMAL) Lipid Panel w/Reflex to Direct LDL (11/15/2024 12:15 PM EST) Cholesterol, Total 157 <200 mg/dL 11/16/2024 12:17 AM [employer] HDL Cholesterol 37(L) > OR = 50 mg/dL 11/16/2024 12:17 AM [employer] Triglycerides 401(H) <150 mg/dL 11/16/2024 12:17 AM [employer] Comment: If a non-fasting specimen was collected, consider repeat triglyceride testing on a fasting specimen if clinically indicated. Mayra et al. J. of Clin. Lipidol. 2015;9:129-169. LDL-Cholesterol See Comments mg/dL (calc) 11/16/2024 12:17 AM [employer] Comment: LDL cholesterol not calculated. Triglyceride levels [...] LDL-C. Stefano FRANK et al. MARJORIE. 2013;310(19): 9406-8284 (http://education.CQuotient/faq/GKC350) Chol/HDLC Ratio 4.2 <5.0 (calc) 11/16/2024 12:17 AM [employer] Non HDL Cholesterol 120 <130 mg/dL (calc) 11/16/2024 12:17 AM [employer] Comment: For patients with diabetes plus 1 major ASCVD risk factor, treating to a non-HDL-C goal of <100 mg/dL (LDL-C of <70 mg/dL) is considered a therapeutic option. Blood Structure of peripheral vein / Unknown 11/15/2024 12:15 PM EST 11/15/2024 10:23 PM EST Narrative [facility] - 11/16/2024 7:23 AM EST FASTING:NO MULTIPLE TESTING PRIORITIES; ROUTINE TESTING TO FOLLOW. us Maal Murguia MD LAB BLOOD ORDERABLES Final Resul t [facility] [address] [facility] 3rd Floor, [place] [address], [employer] [facility] [address] [place] [address] * Comprehensive Metabolic Panel (11/15/2024 12:15 PM EST) [facility] Glucose 90 65 - 139 mg/dL 11/16/2024 12:17 AM [employer] Comment: ? Non-fasting reference interval BUN 11 7 - 25 mg/dL 11/16/2024 12:17 AM [employer] Creatinine 0.60 0.50 - 0.96 mg/dL 11/16/2024 12:17 AM [employer] eGFR 128 > OR = 60 mL/min/1. 73m2 11/16/2024 12:17 AM [employer] Bun/Creatinine Ratio SEE NOTE: (calc) 11/16/2024 12:17 AM [employer] Comment: ?? Not Reported: BUN and Creatinine are within ?? reference range. ? Sodium 140 135 - 146 mmol/L 11/16/2024 12:17 AM [employer] Potassium 4.3 3.5 - 5.3 mmol/L 11/16/2024 12:17 AM [employer] Chloride 105 98 - 110 mmol/L 11/16/2024 12:17 AM [employer] Carbon Dioxide 27 20 - 32 mmol/L 11/16/2024 12:17 AM EST [employer] [facility] Calcium 9.5 8.6 - 10.2 mg/dL 11/16/2024 12:17 AM EST [employer] [facility] Protein, Total 6.4 6.1 - 8.1 g/dL 11/16/2024 12:17 AM EST [employer] [facility] Albumin 4.0 3.6 - 5.1 g/dL 11/16/2024 12:17 AM EST [employer] [facility] Globulin 2.4 1.9 - 3.7 g/dL (calc) 11/16/2024 12:17 AM EST [employer] [facility] Albumin/Globuli n Ratio 1.7 1.0 - 2.5 (calc) 11/16/2024 12:17 AM [employer] [facility] Bilirubin, Total 0.2 0.2 - 1.2 mg/dL 11/16/2024 12:17 AM [employer] [facility] Alkaline Phosphatase 64 31 - 125 U/L 11/16/2024 12:17 AM EST [employer] [facility] AST 13 10 - 30 U/L 11/16/2024 12:17 AM EST [employer] [facility] ALT 13 6 - 29 U/L 11/16/2024 12:17 AM [employer] [facility] Blood Structure of peripheral vein / Unknown 11/15/2024 12:15 PM EST 11/15/2024 10:23 PM EST Narrative [facility] - 11/16/2024 7:23 AM EST FASTING:NO MULTIPLE TESTING PRIORITIES; ROUTINE TESTING TO FOLLOW. us Mala Murguia MD LAB BLOOD ORDERABLES Final Resul t [facility] [address] [facility] 3rd Floor, [place] [address], [place] [phone] [employer] [facility] [address] [place] [address] * CBC (11/15/2024 12:15 PM EST) White Blood Cell Count 7.9 3.8 - 10.8 Thousand/ uL 11/16/2024 12:51 AM EST [employer] [facility] Red Blood Cell Count 5.08 3.80 - 5.10 Million/u L 11/16/2024 12:51 AM EST [employer] [facility] Hemoglobin 13.9 11.7 - 15.5 g/dL 11/16/2024 12:51 AM EST [employer] Hematocrit 41.5 35.0 - 45.0 % 11/16/2024 12:51 AM EST [employer] [facility] MCV 81.7 80.0 - 100.0 fL 11/16/2024 12:51 AM EST [employer] MCH 27.4 27.0 - 33.0 pg 11/16/2024 12:51 AM EST [employer] MCHC 33.5 32.0 - 36.0 g/dL 11/16/2024 12:51 AM EST [employer] Comment: For adults, a slight decrease in the calculated MCHC value (in the range of 30 to 32 g/dL) is most likely not clinically significant; however, it should be interpreted with caution in correlation with other red cell parameters and the patient's clinical condition. RDW 13.2 11.0 - 15.0 % 11/16/2024 12:51 AM [employer] Platelet Count 289 140 - 400 Thousand/ uL 11/16/2024 12:51 AM [employer] MPV 11.8 7.5 - 12.5 fL 11/16/2024 12:51 AM [employer] Blood Structure of peripheral vein / Unknown 11/15/2024 12:15 PM EST 11/15/2024 10:06 PM EST Narrative [facility] - 11/16/2024 7:23 AM EST FASTING:NO MULTIPLE TESTING PRIORITIES; ROUTINE TESTING TO FOLLOW. us Mala Murguia MD LAB BLOOD ORDERABLES Final Resul t [facility] [address] [facility] 3rd Floor, [place] [address], [place] [phone] [employer] [facility] [address] [place] [address] documented in this encounter Visit Diagnoses Diagnosis Routine general medical examination at a health care facility- Primary Hypothyroidism, unspecified type Mixed hyperlipidemia Lactose intolerance Intestinal disaccharidase deficiencies and disaccharide malabsorption Nonalcoholic fatty liver disease Elevated fasting glucose Impaired fasting glucose Acquired hypothyroidism Unspecified hypothyroidism Anxiety Anxiety state, unspecified Diarrhea, unspecified type Gastroesophageal reflux disease without esophagitis Esophageal reflux Epigastric pain Abdominal pain, epigastric documented in this encounter Care Teams Security Assurance Analyst Relationship Specialty Start Date End Date Mala Murguia MD [address] [place] [phone] PCP - General Internal Medicine 09/17/21 documented as of this encounter
--- OUTSIDE RECORDS SUMMARY | 2024-11-29 19:35 | XMS_ITS | Encounter Summary ---
Author Organization [facility] Address [address] [place] [address] Care Team Providers Care Quality Assurance Supervisor Chassis Name Role Phone Mala Murguia MD Primary Care Provider [phone] Encounter Details Date Type Department Care Team (Late st Contact Info) Description 07/29/2023 Orders Only [facility] XRay [address] [place], [place] [phone] Tae Amor MD [address] [facility] Interventional Radiology [place], [place] [phone] Social History Tobacco Use Types Packs/Day Years Used Date Smoking Tobacco: Never Smokeless Tobacco: Never Comments:: Alcohol Use Standard Drinks/Week Comments Never 0 (1 standard drink = 0.6 oz pur e alcohol) Transportation Answer Date Recorded Please charla the areas for wh ich the patient would like information or assistance: None Apply 10/21/2022 Lack of Transportation (Medical) Not on file 10/21/2022 Housing Stability Answer Date Recorded Please charla the areas for wh ich the patient would like information or assistance: None Apply 10/21/2022 Unable to Pay for Housing in the Last Year Not o n file 10/21/2022 Last EPDS Total Score Not on file 10/21/2022 Unstable Housing in the Last Year Not on file 10/21/2022 Comments No Sex and Gender Information Value [...] Description 12/29/2024 9:30 AM EST Procedure visit [facility] [address] [place] [phone] 12/29/2024 10:15 AM EST Follow-Up [facility] Upper Extremity [address] [address] Conner Linton MD [address] [place] [address] 01/18/2025 9:20 AM EDT Follow-Up [facility] Internal Medicine [address] [place] [phone] Mala Murguia MD [address] [place] [address] 11/21/2025 10:00 AM EST Office Visit [facility] Internal Medicine [address] [place] [phone] Mala Murguia MD [address] [place] [address] documented as of this encounter Visit Diagnoses Not on filedocumented in this encounter Additional Health Concerns Infection Onset Date Last Indicated Resolved Time R/O C.diff 10/21/2023 10/22/2023 10/23/2023 3:59 PM EST documented as of this encounter Care Teams Quality Assurance Supervisor Chassis Relationship Specialty Start Date End Date Mala Murguia MD [address] [place] [address] PCP - General Internal Medicine 09/17/21 documented as of this encounter
--- OUTSIDE RECORDS SUMMARY | 2024-11-29 19:35 | XMS_ITS | Clinical Summary ---
Author Organization [facility] Address [address] [place] [address] Care Team Providers Care Shoe Stainer Name Role Phone Mala Murguia MD Primary Care Provider [phone] Allergies Active Allergy Reactions Criticality Noted Date [...] once a day. 91 tablet 3 06/13/20 Active EPINEPHrine (EPIPEN) 0.3 mg/0.3 mL injection [...] Overweight 01/07/2016 10/11/2021 Chronic constipation 01/07/2016 020 Encounters Date Type Department Care Team Description 11/15/2024 11:00 AM EST Office Visit [facility] Internal Medicine [address] [place] [address] [phone] Yen Morales MD Routine general medical examination at a health care facility (Primary Dx); Hypothyroidism, unspecified type; Mixed hyperlipidemia; Lactose intolerance; Nonalcoholic fatty liver disease; Elevated fasting glucose; Acquired hypothyroidism; Anxiety; Diarrhea, unspecified type; Gastroesophageal reflux disease without esophagitis; Epigastric pain 11/15/2024 myChart Message [facility] Internal Medicine [address] [place] [address] [phone] Mychart, Generic Provider schedule 1-2 month follow up re: anxiety 11/09/2024 9:15 AM EST Evaluation [facility] Hand Therapy [address] [place] [phone] Mane Marvin OT De Quervain's tenosynovitis, right (Primary Dx); Carpal tunnel syndrome of right wrist; Deficit in activities of daily living (ADL) 10/03/2024 11:45 AM EST Office Visit [facility] Hand Therapy [address] [place] [phone] Mane Marvin OT De Quervain's tenosynovitis, right (Primary Dx); Carpal tunnel syndrome of right wrist; Deficit in activities of daily living (ADL) 10/03/2024 10:30 AM EST Office Visit [facility] [address] [place] [phone] Conner Linton MD Right hand pain (Primary Dx); De Quervain's tenosynovitis; Lateral epicondylitis of right elbow; Bilateral carpal tunnel syndrome 09/07/2024 11:20 AM EST Follow-Up [facility] Internal Medicine [address] [place] [phone] Mala Murguia MD De Quervain's tenosynovitis, right (Primary Dx); Diarrhea, unspecified type; Gastroesophageal reflux disease without esophagitis from Last 3 Months Immunizations Name Administration Dates Next Due Covid-19 [...] Diphtheria Toxoid) 10/14/2021 Varicella Virus Vaccine 02/01/2010,02/18/2001 Family History Medical History Relation Name Comments Hypertension Father Irritable bowel syndrome Maternal Grandmother Arthritis Mother Endometriosis Mother Hemochromatosis Mother Other Mother Family History of malignant neoplasm Breast cancer Neg Hx Colon cancer Neg Hx Relation Name Status Comments Father Maternal Grandmother Mother Social History Tobacco Use Types Packs/Day Years Used Date Smoking Tobacco: Never Smokeless Tobacco: Never Comments:: Alcohol Use Standard Drinks/Week Comments Never 0 (1 standard drink = 0.6 oz pur e alcohol) [facility] Utilities Answer Date Recorded In the past [...] Description 12/29/2024 9:30 AM EST Procedure visit [facility] [address] [place] [phone] 12/29/2024 10:15 AM EST Follow-Up [facility] [address] [place] [phone] Conner Linton MD [address] [place] [phone] 01/18/2025 9:20 AM EDT Follow-Up [facility] Internal Medicine [address] [place] [phone] Mala Murguia MD [address] [place] [address] [phone] 11/21/2025 10:00 AM EST Office Visit [facility] Internal Medicine [address] [place] [phone] Mala Murguia MD [address] [place], [place] [phone] Health Maintenance Due Date Last Done Comments HIV Screening 1999 Hepatitis C Screening 1999 Influenza Vaccine (#1) 2024 , 10/14/2021, 07/15/2017, Additional history exists COVID-19 Vaccine ( season) 2025 12/06/2021, 04/02/2021, 03/06/2021, Additional history exists Postponed from 06/26/2024 (Other Medical Reason) Social Drivers of Health Annual Screening 2025 2024 Depression Evaluation 11/15/2025 11/15/2024 Pap Smear 03/31/2026 03/31/2023 DTaP,Tdap,and Td Vaccines (9 - Td or Tdap) 10/14/2031 10/14/2021, 11/04/2011, 11/04/2011, Additional history exists RSV Vaccine (60+ years old and patients) (1 - 1-dose 75+ series) 2074 Hepatitis B Vaccines Completed 09/21/2000, 01/23/2000, 1999 Pneumococcal Vaccine: Pediatric (0-5 Years) and At-Risk Patients (6-64 Years) Completed 05/25/2001, 05/25/2001, 02/18/2001, Additional history exists Varicella Vaccines Completed 02/01/2010, 02/18/2001 HPV Vaccines Completed 04/14/2014, 03/27, 01/12/2013, Additional history exists Alcohol/Substance Use Screening Completed 2024, 09/07/2024 Procedures * Due to [place] state law, this organization might not be [...] Last 3 Months Results * Due to [place] state law, this organization might not be sharing negative HIV tests. * TSH Reflex Free T4 (11/15/2024 12:15 PM EST) TSH 2.08 mIU/L 11/15/2024 11:39 PM EST [employer] Comment: ?Reference Range ?> or = 20 [...] ORDERABLES Final Resul t [facility] [address] [facility] 3rd Floor, [place] [address], [place] [phone] [employer] [facility] [address] [place] [address] * (ABNORMAL) Lipid Panel w/Reflex to Direct LDL (11/15/2024 12:15 PM EST) Cholesterol, Total 157 <200 mg/dL 11/16/2024 12:17 AM EST [employer] HDL Cholesterol 37(L) > OR = 50 mg/dL 11/16/2024 12:17 AM EST [employer] Triglycerides 401(H) <150 mg/dL 11/16/2024 12:17 AM [employer] Comment: If a non-fasting specimen was collected, consider repeat triglyceride testing on a fasting specimen if clinically indicated. Mayra et al. J. of Clin. Lipidol. 2015;9:129-169. LDL-Cholesterol See Comments mg/dL (calc) 11/16/2024 12:17 AM [employer] Comment: LDL cholesterol not calculated. Triglyceride levels [...] LDL-C. Stefano FRANK et al. MARJORIE. 2013;310(19): 1252-9374 (http://education.FTL SOLAR.Catavolt/faq/LWK123) Chol/HDLC Ratio 4.2 <5.0 (calc) 11/16/2024 12:17 AM EST [employer] Non HDL Cholesterol 120 <130 mg/dL (calc) 11/16/2024 12:17 AM EST [employer] Comment: For patients with diabetes plus 1 [...] ORDERABLES Final Resul t [facility] [address] [facility] [address]rd Floor, [place] [address], [place] [phone] [employer] [facility] [address] [place] [address] * CBC (11/15/2024 12:15 PM EST) White Blood Cell Count 7.9 3.8 - 10.8 Thousand/ uL 11/16/2024 12:51 AM EST [employer] Red Blood Cell Count 5.08 3.80 - 5.10 Million/u L 11/16/2024 12:51 AM EST [employer] Hemoglobin 13.9 11.7 - 15.5 g/dL 11/16/2024 12:51 AM EST [employer] Hematocrit 41.5 35.0 - 45.0 % 11/16/2024 12:51 AM EST [employer] MCV 81.7 80.0 - 100.0 fL 11/16/2024 12:51 AM EST [employer] MCH 27.4 27.0 - 33.0 pg 11/16/2024 12:51 AM EST [employer] MCHC 33.5 32.0 - 36.0 g/dL 11/16/2024 12:51 AM EST [employer] Comment: For adults, a slight decrease in the calculated MCHC value (in the range of 30 to 32 g/dL) is most likely not clinically significant; however, it should be interpreted with caution in correlation with other red cell parameters and the patient's clinical condition. RDW 13.2 11.0 - 15.0 % 11/16/2024 12:51 AM EST [employer] Platelet Count 289 140 - 400 Thousand/ uL 11/16/2024 12:51 AM EST [employer] MPV 11.8 7.5 - 12.5 fL 11/16/2024 12:51 AM EST [employer] [facility] Blood Structure of peripheral vein / Unknown 11/15/2024 12:15 PM EST 11/15/2024 10:06 PM EST Narrative [facility] - 11/16/2024 7:23 AM EST FASTING:NO MULTIPLE TESTING PRIORITIES; ROUTINE TESTING TO FOLLOW. us Mala Murguia MD LAB BLOOD ORDERABLES Final Resul t Performing Organization Address [facility] de Phone Number [facility] [address], [place] [address], [place] [phone] [employer] [address] [phone] * LDL Cholesterol, Direct (11/15/2024 12:15 PM EST) Direct LDL 80 <100 mg/dL 11/16/2024 2:35 AM EST [employer] [facility] Comment: Desirable range <100 mg/dL for primary prevention; ?? <70 mg/dL for patients with CHD or diabetic patients with > or = 2 CHD risk factors. 11/15/2024 12:1 5 PM EST 11/15/2024 12:16 PM EST Narrative [facility] - 11/16/2024 7:23 AM EST FASTING:NO MULTIPLE TESTING PRIORITIES; ROUTINE TESTING TO FOLLOW. us Mala Murguia MD LAB BLOOD ORDERABLES Final Resul t Performing Organization Address City/[facility] Co de Phone Number [facility] [address], [place] [address], [place] [phone] [employer] [address] [phone] * (ABNORMAL) Hemoglobin A1c (11/15/2024 12:15 PM EST) Hemoglobin A1C 5.9(H) <5.7 % of total Hgb 11/16/2024 7:19 AM EST [employer] Comment: For someone without known diabetes, a [...] (MG/DL) 123 mg/dL 11/16/2024 7:19 AM EST [employer] eAG (MMOL/L) 6.8 mmol/L 11/16/2024 7:19 AM [employer] Blood Structure of peripheral vein / Unknown 11/15/2024 12:15 PM EST 11/15/2024 10:06 PM EST Narrative [facility] - 11/16/2024 7:23 AM EST FASTING:NO MULTIPLE TESTING PRIORITIES; ROUTINE TESTING TO FOLLOW. us Mala Murguia MD LAB BLOOD ORDERABLES Final Resul t [facility] [address] [facility] [address], [place] [address], [employer] [facility] [address] [place] [address] * Comprehensive Metabolic Panel (11/15/2024 12:15 PM EST) Glucose 90 65 - 139 mg/dL 11/16/2024 12:17 AM EST [employer] Comment: ? Non-fasting reference interval BUN 11 7 - 25 mg/dL 11/16/2024 12:17 AM EST [facility] Creatinine 0.60 0.50 - 0.96 mg/dL 11/16/2024 12:17 AM EST [facility] eGFR 128 > OR = 60 mL/min/1. 73m2 11/16/2024 12:17 AM [employer] [facility] Bun/Creatinine Ratio SEE NOTE: 6 - 22 (calc) 11/16/2024 12:17 AM [employer] [facility] Comment: ?? Not Reported: BUN and Creatinine are within ?? reference range. ? Sodium 140 135 - 146 mmol/L 11/16/2024 12:17 AM [employer] Potassium 4.3 3.5 - 5.3 mmol/L 11/16/2024 12:17 AM [employer] [facility] Chloride 105 98 - 110 mmol/L 11/16/2024 12:17 AM [employer] [facility] Carbon Dioxide 27 20 - 32 mmol/L 11/16/2024 12:17 AM [employer] [facility] Calcium 9.5 8.6 - 10.2 mg/dL 11/16/2024 12:17 AM [employer] [facility] Protein, Total 6.4 6.1 - 8.1 g/dL 11/16/2024 12:17 AM [employer] [facility] Albumin 4.0 3.6 - 5.1 g/dL 11/16/2024 12:17 AM [employer] [facility] Globulin 2.4 1.9 - 3.7 g/dL (calc) 11/16/2024 12:17 AM [employer] [facility] Albumin/Globuli n Ratio 1.7 1.0 - 2.5 (calc) 11/16/2024 12:17 AM [employer] [facility] Bilirubin, Total 0.2 0.2 - 1.2 mg/dL 11/16/2024 12:17 AM [employer] [facility] Alkaline Phosphatase 64 31 - 125 U/L 11/16/2024 12:17 AM [employer] [facility] AST 13 10 - 30 U/L 11/16/2024 12:17 AM [employer] [facility] ALT 13 6 - 29 U/L 11/16/2024 12:17 AM [employer] [facility] Blood Structure of peripheral vein / Unknown 11/15/2024 12:15 PM EST 11/15/2024 10:23 PM EST Narrative [facility] - 11/16/2024 7:23 AM EST FASTING:NO MULTIPLE TESTING PRIORITIES; ROUTINE TESTING TO FOLLOW. us Mala Murguia MD LAB BLOOD ORDERABLES Final Resul t [facility] [address] [facility] [address], [place] [address], [place] [phone] [facility] [address] [place] [address] * X-Ray Wrist Right 3+ Views (10/03/2024 [...] obtain the completed interpretation. ? Workstation ID: [id number] Narrative 10/03/2024 7:47 PM EST COMPARISON: Radiograph of the right wrist from 04/23/2016. Resulting Agency Comment [id number] Procedure Note Beau Lundberg MD - 10/03/2024 [...] possible to obtain thecompleted interpretation. Workstation ID: [id number] us Conner Linton MD IMG XR PROCEDURES Final [...] obtain the completed interpretation. ? Workstation ID: [id number] Narrative 10/03/2024 7:47 PM EST COMPARISON: Radiograph of the right wrist from 04/23/2016. Resulting Agency Comment [id number] Procedure Note Beau Lundberg MD - 10/03/2024 [...] possible to obtain thecompleted interpretation. Workstation ID: [id number] Conner Linton MD IMG XR PROCEDURES Final Result from Last [address] [place] [id number] [facility] HMO/POS WORKERS COMPENSATION Advance Directives Documents on File Type Date Recorded Patient Advertising Writer Expl anation Health Care Proxy 04/22/2022 2:22 [facility] Care Teams Shoe Stainer Relationship Specialty Start Date End Date Mala Murguia MD [address] [place] [phone] PCP - General Internal Medicine 09/17/21
[2024-11-29 19:42] VITALS: BP 140/72; PULSE 83; RESP 16; TEMP 36.6; O2SAT 97
== END 2024-11-29 19:42 | disposition home or self-care (01) ==
PROVIDERS: Emergency Provider Emergency Medicine
DX: S83.91XA Sprain of unspecified site of right knee, initial encounter (principal); M25.571 Pain in right ankle and joints of right foot; W01.0XXA Fall on same level from slipping, tripping and stumbling without subsequent striking against object, initial encounter; Y93.9 Activity, unspecified; Y92.9 Unspecified place or not applicable; Y99.8 Other external cause status
CPT/HCPCS: 29505; 73564; 73610; 99283; 99284

== ENCOUNTER → 2024-11-29 16:00 | Outpatient (BNV) | payer SELFPAY | PROVIDERS: Visit Provider Radiology Diagnostic Radiology | DX: M25.571 Pain in right ankle and joints of right foot (principal); M25.561 Pain in right knee | CPT/HCPCS: 73564; 73610 ==